=== PATIENT | female | born 1965 | race Two or more races ===

== ENCOUNTER 2020-05-21 13:52 | Outpatient (RCR) | payer MEDICAID, SELFPAY | END 2020-07-24 13:22 | disposition other institution (70) | LOC: HO.PT 13:52 | PROVIDERS: Visit Provider Student in an Organized Health Care Education/Training Program | DX: L40.50 Arthropathic psoriasis, unspecified (principal); M75.81 Other shoulder lesions, right shoulder | CPT/HCPCS: 97110; 97112 ==

== ENCOUNTER 2020-07-28 12:28 | Outpatient (REF) | payer MEDICAID, SELFPAY ==
--- NOTE | 2020-07-28 | XR_ITS ---
EXAMINATION: XR LUMBOSACRAL SPINE WITH OBLIQUES CLINICAL INFORMATION: Psoriatic arthritis COMPARISON: 12/16/2015 TECHNIQUE: AP, both oblique, and lateral views of the lumbar spine. Lateral view of the lumbosacral junction. FINDINGS: No acute fractures or fixation. Small endplate osteophytes present throughout the lumbar spine. Vertebral body heights and disc spaces relatively preserved. Mild facet arthropathy throughout the lumbar spine. Sacroiliac joints are symmetric. Paraspinal soft tissues unremarkable. XR/XR lumbar spine 4V min IMPRESSION: No specific radiographic evidence of psoriatic spondyloarthropathy . Small endplate osteophytes present throughout the lumbar spine.
[2020-07-28 13:10] LABS: Basophils Percent Auto 0.5 % (0-2); Eosinophils Absolute Auto 0.1 X10*3/uL (0.0-0.4); Eosinophils Percent Auto 1.5 % (0-4); Hematocrit 38.2 % (37-47); Hemoglobin 12.6 g/dl (12.0-16.0); Imm Gran Abs Auto 0.02 X10*3/uL (0.00-0.03); Imm Gran Pct Auto 0.3 % (0.0-0.4); Lymphocytes Absolute Auto 3.3 X10*3/uL (1.2-4.9); Lymphocytes Percent Auto 50.1 % (20-40); MANUAL DIFF FLAG NO; Mean Corpuscular Hemoglobin 33.6 pg (27.0-33.0); Mean Corpuscular Volume 101.9 fL (80-98); Monocytes Absolute Auto 0.7 X10*3/uL (0.1-1.2); Monocytes Percent Auto 10.3 % (2-11); Neutrophils Absolute Auto 2.5 X10*3/uL (2.0-8.3); Neutrophils Percent Auto 37.3 % (45-73); Platelet Count 212 X10*3/uL (160-400); Red Blood Count 3.75 X10*6/uL (4.20-5.50); Red Cell Distribution Width 12.6 % (11.0-16.0); White Blood Count 6.6 X10*3/uL (4.8-10.8)
[2020-07-28 13:38] LABS: Cholesterol 142 mg/dL; HDL Cholesterol 49 mg/dL; LDL Cholesterol Calculated 35 mg/dl; Triglycerides 294 mg/dL
[2020-07-28 13:49] LABS: Creatinine Urine 55.17 mg/dL; Microalbum/Creatinine Ratio Ur 52.5 ug/mg cr
[2020-07-28 13:52] LABS: Estimated Average Glucose 243 mg/dL; Hemoglobin A1c % 10.1 %
[2020-07-28 13:55] LABS: Alanine Aminotransferase 43 U/L (0-31); Alkaline Phosphatase 87 U/L (39-117); Anion Gap 11 (12-20); Aspartate Amino Transferase 42 U/L (5-31); Bilirubin Total 0.4 mg/dL (0.0-1.0); Blood Urea Nitrogen 7 mg/dL (9-16); C Reactive Protein 0.46 mg/dL (< or = 0.50); Calcium 9.5 mg/dL (8.4-10.2); Carbon Dioxide 36 mmol/L (22-29); Chloride 99 mmol/L (96-108); Estimated Glomerular Filt Rate > 60; Glucose Random 134 mg/dL (60-115); Potassium 4.6 mmol/l (3.3-5.1); Sodium 141 mmol/L (135-145); Total Protein 7.9 g/dL (6.5-8.0)
[2020-07-28 14:11] LABS: Erythrocyte Sedimentation Rate 23 MM/HR (0-20)
== END 2020-07-28 12:29 | disposition home or self-care (01) ==
LOC: HO.LAB 12:28
PROVIDERS: PCP Internal Medicine; Visit Provider Student in an Organized Health Care Education/Training Program
DX: L40.50 Arthropathic psoriasis, unspecified (principal); L40.9 Psoriasis, unspecified; Z79.899 Other long term (current) drug therapy; E11.65 Type 2 diabetes mellitus with hyperglycemia; E78.2 Mixed hyperlipidemia; I10 Essential (primary) hypertension; R80.8 Other proteinuria
CPT/HCPCS: 36415; 72110; 80053; 80061; 82043; 83036; 85025; 85652; 86140

== ENCOUNTER 2020-08-19 13:41 | Outpatient (REF) | payer MEDICAID, SELFPAY ==
--- NOTE | 2020-08-19 13:46 | MM_ITS ---
EXAMINATION: MM SCREENING DIGITAL BREAST TOMOSYNTHESIS, BILATERAL CLINICAL INFORMATION: Screening. Asymptomatic. The lifetime risk of breast cancer based on the Tyrer-Cuzick Model is 5.4%. COMPARISON: Mammography: May 28, 2019 and studies dating back to July 12, 2012 TECHNIQUE: Digital breast tomosynthesis is performed in both the craniocaudal and mediolateral oblique views along with computer-aided detection (CAD). Synthesized 2D images are generated from the tomosynthesis. Left exaggerated craniocaudal view also performed. FINDINGS: The breasts are almost entirely fatty (ACR BI-RADS breast composition Category a). There are no significant masses, abnormal calcifications, or other abnormalities. MM/MM tomosynthesis screening BI IMPRESSION: There are no significant changes from prior study. ASSESSMENT: BI-RADS 1: Negative RECOMMENDATION: Routine annual mammography screening. This patient's information was entered into a reminder system with a target due date for their next mammogram.
== END 2020-08-19 13:42 | disposition home or self-care (01) ==
LOC: HO.MAMMO 13:41
PROVIDERS: PCP Internal Medicine; Visit Provider Internal Medicine
DX: Z12.31 Encounter for screening mammogram for malignant neoplasm of breast (principal)
CPT/HCPCS: 77063; 77067

== ENCOUNTER 2020-09-23 08:52 | Outpatient (REF) | payer MEDICAID, SELFPAY ==
--- NOTE | ~2020-09-23 | XR_ITS ---
EXAMINATION: BILATERAL KNEES. CLINICAL INFORMATION: Bilateral knee pain COMPARISON: None TECHNIQUE: 3 views of each knee FINDINGS: RIGHT KNEE: There is loss of tricompartment joint space with periarticular spurring. No loose bodies, one erosive changes or suprapatellar joint effusion seen. The soft tissues are unremarkable. LEFT KNEE: There is loss of tricompartment joint space with periarticular spurring. There are no loose bodies, bony erosive changes or joint effusion. The soft tissues unremarkable. XR/XR knee RT 3V IMPRESSION: Moderate degenerative arthritic changes both knee joints. No visible acute fracture, dislocation or subluxation seen.
--- NOTE | ~2020-09-23 | XR_ITS ---
EXAMINATION: BILATERAL KNEES. CLINICAL INFORMATION: Bilateral knee pain COMPARISON: None TECHNIQUE: 3 views of each knee FINDINGS: RIGHT KNEE: There is loss of tricompartment joint space with periarticular spurring. No loose bodies, one erosive changes or suprapatellar joint effusion seen. The soft tissues are unremarkable. LEFT KNEE: There is loss of tricompartment joint space with periarticular spurring. There are no loose bodies, bony erosive changes or joint effusion. The soft tissues unremarkable. XR/XR knee LT 3V IMPRESSION: Moderate degenerative arthritic changes both knee joints. No visible acute fracture, dislocation or subluxation seen.
[2020-09-23 10:07] LABS: MANUAL DIFF FLAG NO
[2020-09-23 10:29] LABS: Basophils Percent Auto 0.4 % (0-2); Eosinophils Absolute Auto 0.1 X10*3/uL (0.0-0.4); Eosinophils Percent Auto 1.9 % (0-4); Hematocrit 40.1 % (37-47); Hemoglobin 12.8 g/dl (12.0-16.0); Imm Gran Abs Auto 0.01 X10*3/uL (0.00-0.03); Imm Gran Pct Auto 0.2 % (0.0-0.4); Lymphocytes Percent Auto 56.8 % (20-40); Mean Corpuscular HGB Conc 31.9 g/dl (31.0-35.0); Mean Corpuscular Hemoglobin 32.4 pg (27.0-33.0); Mean Corpuscular Volume 101.5 fL (80-98); Mean Platelet Volume 10.9 fL (9.4-12.3); Monocytes Absolute Auto 0.5 X10*3/uL (0.1-1.2); Monocytes Percent Auto 9.2 % (2-11); Neutrophils Absolute Auto 1.7 X10*3/uL (2.0-8.3); Neutrophils Percent Auto 31.5 % (45-73); Platelet Count 243 X10*3/uL (160-400); Red Blood Count 3.95 X10*6/uL (4.20-5.50); Red Cell Distribution Width 12.2 % (11.0-16.0); White Blood Count 5.3 X10*3/uL (4.8-10.8)
[2020-09-23 10:53] LABS: Alanine Aminotransferase 22 U/L (0-31); Albumin Level 3.9 g/dL (3.5-5.0); Alkaline Phosphatase 78 U/L (39-117); Anion Gap 14 (12-20); Aspartate Amino Transferase 21 U/L (5-31); Bilirubin Total 0.4 mg/dL (0.0-1.0); Blood Urea Nitrogen 9 mg/dL (9-16); Calcium 9.2 mg/dL (8.4-10.2); Carbon Dioxide 34 mmol/L (22-29); Chloride 97 mmol/L (96-108); Estimated Glomerular Filt Rate > 60; Glucose Random 248 mg/dL (60-115); Potassium 4.4 mmol/L (3.3-5.1); Sodium 141 mmol/L (135-145); Total Protein 7.8 g/dL (6.5-8.0)
[2020-09-23 12:05] LABS: Erythrocyte Sedimentation Rate 21 MM/HR (0-20)
== END 2020-09-23 08:53 | disposition home or self-care (01) ==
LOC: HO.LAB 08:52
PROVIDERS: PCP Internal Medicine; Visit Provider Student in an Organized Health Care Education/Training Program
DX: L40.50 Arthropathic psoriasis, unspecified (principal); L40.9 Psoriasis, unspecified; M25.562 Pain in left knee; M25.561 Pain in right knee; Z79.899 Other long term (current) drug therapy
CPT/HCPCS: 36415; 73562; 80053; 85025; 85652; 86140; 99212

== ENCOUNTER 2020-11-18 13:00 | Outpatient (RCR) | payer MEDICAID, SELFPAY ==
[2020-10-29 13:05] VITALS: BP 135/80; PULSE 96
--- NOTE | 2020-10-29 13:59 | MHC.PT.EP ---
[facility] [place] Office [place] Office [place] Office [address] [phone] F: [phone] F: [phone] F: [phone] F: [phone] Physical Therapy Plan of Care Date of Evaluation: 10/29/20 Date of Surgery: NA Diagnosis: BACK AND TIFFANI KNEE PAIN Assessment: GRANT RETURNS TO PT FOR TREATMENT OF ONGOING LOW BACK AND KNEE PAIN. UPON EXAM IMPAIRMENTS INCLUDE DECREASED LUMBAR AND LE ROM, DECREASED STRENGTH OF CORE, HIPS AND LE, ALTERED POSTURE AND POSITIONING, ALTERED GAIT PATTERN, DECREASED BALANCE AND INCREASED PAIN. FUNCTIONAL LIMITATIONS INCLUDE DECREASED TOLERANCE TO LIFTING, REACHING, PUSHING, PULLING, SQUATTING AND BENDING, DECREASED ABILITY TO PERFORM HOMEMAKING AND SELF CARE TASKS, DECREASED ABILTIY TO PERFORM STATIC STANDING, WALKING GREATER THN 5 MINS AND CLIMBING/DECENDING STAIRS. Frequency and Duration: The patient will be seen 2 X WEEK FOR 4 WEEKS Short Term Goals: PROGRESS PREVIOUS HEP AND PROGRESS TOLERATED IN 2 WEEKS Long-Term Goals: IN 4 WEEKS INDEPENDENT HEP TO TOLERATE AT MINIMUM 15 MINS OF WALKING WITHOUT REST BREAK AND PAIN NO GREATER THAN 2/10 TO CLIMB/DESCEND 1 FLIGHT OF STAIRS, 3 REPETITIONS WITH RECIPROCAL GAIT PATTERNING Treatment Plan: Modalities to reduce pain, spasms and effusion. Manual therapy to restore motion and function. Therapeutic exercise to improve strength and flexibility. Neuromuscular re-education for posture and balance. Therapeutic activities to return to functional activities of daily living. Electronically signed by: JONATHAN BELL PT, DPT Please sign and return to therapist. Thank you for your referral.
--- NOTE | 2021-01-14 12:53 | MHC.PT.DC ---
[facility] [place] Office [place] Office [place] Office [address] Watts [address] [phone] F: [phone] F: [phone] F: [phone] F: [phone] Physical Therapy Discharge Report Diagnosis: BACK AND TIFFANI KNEE PAIN Date of Surgery: NA Date of Evaluation: 10/29/20 Date of Discharge: 11/25/20 Treatments to Date: 3 Cancellations to Date: 6 No Shows to Date: 0 Discharge Status: Patient Elected to Stop Visit Non-compliance Discharge Summary: MULTIPLE CANCELS AND DID NOT SCHEDULE FURTHER VISITS, STATUS UNKNOWN Electronically signed by: JONATHAN BELL PT, DPT Please sign and return to therapist. Thank you for your referral.
== END 2021-01-14 12:54 | disposition other institution (70) ==
LOC: HO.PT 13:00
PROVIDERS: PCP Internal Medicine; Visit Provider Student in an Organized Health Care Education/Training Program
DX: L40.50 Arthropathic psoriasis, unspecified (principal)
CPT/HCPCS: 97110; 97162; 97535

== ENCOUNTER 2021-01-26 12:57 | Outpatient (REF) | payer MEDICAID, SELFPAY ==
[2021-01-26 14:25] LABS: Estimated Average Glucose 263 mg/dL; Hemoglobin A1c % 10.8 %
[2021-01-26 14:34] LABS: Alanine Aminotransferase 22 U/L (0-31); Albumin Level 4.1 g/dL (3.5-5.0); Alkaline Phosphatase 85 U/L (39-117); Anion Gap 11 (12-20); Aspartate Amino Transferase 30 U/L (5-31); Bilirubin Total 0.6 mg/dL (0.0-1.0); Blood Urea Nitrogen 9 mg/dL (9-16); Calcium 10.1 mg/dL (8.4-10.2); Carbon Dioxide 33 mmol/L (22-29); Chloride 102 mmol/L (96-108); Cholesterol 158 mg/dL; Estimated Glomerular Filt Rate > 60; Glucose Random 100 mg/dL (60-115); HDL Cholesterol 45 mg/dL; LDL Cholesterol Calculated 52 mg/dl; Potassium 4.3 mmol/L (3.3-5.1); Sodium 142 mmol/L (135-145); Total Protein 8.3 g/dL (6.5-8.0); Triglycerides 308 mg/dL
[2021-01-26 15:05] LABS: Creatinine Urine 120.54 mg/dL; Microalbum/Creatinine Ratio Ur 39.8 ug/mg cr
== END 2021-01-26 12:58 | disposition home or self-care (01) ==
LOC: HO.LAB 12:57
PROVIDERS: PCP Internal Medicine; Visit Provider Internal Medicine
DX: E11.65 Type 2 diabetes mellitus with hyperglycemia (principal); E78.2 Mixed hyperlipidemia; I10 Essential (primary) hypertension; R80.8 Other proteinuria
CPT/HCPCS: 36415; 80053; 80061; 82043; 83036

== ENCOUNTER → 2021-02-16 13:56 | Outpatient (BNVA) | payer MEDICAID, SELFPAY | PROVIDERS: PCP Internal Medicine; Visit Provider Student in an Organized Health Care Education/Training Program | DX: L40.50 Arthropathic psoriasis, unspecified (principal); Z79.899 Other long term (current) drug therapy | CPT/HCPCS: 99212 ==

== ENCOUNTER → 2021-04-20 10:07 | Outpatient (BNVA) | payer MEDICAID, SELFPAY | PROVIDERS: PCP Internal Medicine; Visit Provider Student in an Organized Health Care Education/Training Program ==

== ENCOUNTER 2021-06-14 12:22 | Outpatient (REF) | payer MEDICAID, SELFPAY ==
[2021-06-14 12:39] LABS: MANUAL DIFF FLAG NO
[2021-06-14 13:09] LABS: Basophils Percent Auto 0.2 % (0-2); Eosinophils Absolute Auto 0.2 X10*3/uL (0.0-0.4); Hematocrit 40.5 % (37.0-47.0); Hemoglobin 13.1 g/dl (12.0-16.0); Imm Gran Abs Auto 0.01 X10*3/uL (0.00-0.03); Imm Gran Pct Auto 0.2 % (0.0-0.4); Lymphocytes Absolute Auto 2.6 X10*3/uL (1.2-4.9); Lymphocytes Percent Auto 48.6 % (20-40); Mean Corpuscular HGB Conc 32.3 g/dl (31.0-35.0); Mean Corpuscular Hemoglobin 32.3 pg (27.0-33.0); Mean Platelet Volume 10.8 fL (9.4-12.3); Monocytes Absolute Auto 0.5 X10*3/uL (0.1-1.2); Monocytes Percent Auto 8.3 % (2-11); Neutrophils Absolute Auto 2.15 x10*3/uL (2.0-8.3); Neutrophils Percent Auto 39.7 % (45-73); Platelet Count 264 X10*3/uL (160-400); Red Blood Count 4.05 X10*6/uL (4.20-5.50); Red Cell Distribution Width 13.1 % (11.0-16.0); White Blood Count 5.4 X10*3/uL (4.8-10.8)
[2021-06-14 13:33] LABS: Alanine Aminotransferase 17 U/L (0-31); Albumin Level 3.8 g/dL (3.5-5.0); Alkaline Phosphatase 88 U/L (39-117); Anion Gap 14 (12-20); Aspartate Amino Transferase 19 U/L (5-31); Bilirubin Total 0.5 mg/dL (0.0-1.0); Blood Urea Nitrogen 8 mg/dL (9-16); C Reactive Protein 0.24 mg/dL (< or = 0.50); Calcium 9.4 mg/dL (8.4-10.2); Carbon Dioxide 29 mmol/L (22-29); Chloride 103 mmol/L (96-108); Estimated Glomerular Filt Rate > 60; Glucose Random 233 mg/dL (60-115); Potassium 4.6 mmol/L (3.3-5.1); Sodium 141 mmol/L (135-145); Total Protein 7.9 g/dL (6.5-8.0)
[2021-06-14 13:35] LABS: Estimated Average Glucose 263 mg/dL; Hemoglobin A1c % 10.8 %
[2021-06-14 13:39] LABS: Cholesterol 196 mg/dL; HDL Cholesterol 48 mg/dL; LDL Cholesterol Calculated 78 mg/dl; Triglycerides 353 mg/dL
[2021-06-14 13:47] LABS: Erythrocyte Sedimentation Rate 20 MM/HR (0-20)
== END 2021-06-14 12:23 | disposition home or self-care (01) ==
LOC: HO.LAB 12:22
PROVIDERS: Student in an Organized Health Care Education/Training Program; PCP Internal Medicine; Visit Provider Internal Medicine
DX: E11.65 Type 2 diabetes mellitus with hyperglycemia (principal); E78.2 Mixed hyperlipidemia; I10 Essential (primary) hypertension; L40.50 Arthropathic psoriasis, unspecified
CPT/HCPCS: 36415; 80053; 80061; 83036; 85025; 85652; 86140

== ENCOUNTER 2021-09-13 12:14 | Outpatient (REF) | payer MEDICAID, SELFPAY ==
[2021-09-13 12:58] LABS: MANUAL DIFF FLAG NO
[2021-09-13 13:25] LABS: Basophils Percent Auto 0.6 % (0-2); Eosinophils Absolute Auto 0.1 X10*3/uL (0.0-0.4); Hematocrit 38.5 % (37.0-47.0); Hemoglobin 12.5 g/dl (12.0-16.0); Imm Gran Abs Auto 0.01 X10*3/uL (0.00-0.03); Imm Gran Pct Auto 0.2 % (0.0-0.4); Lymphocytes Absolute Auto 2.5 X10*3/uL (1.2-4.9); Lymphocytes Percent Auto 48.7 % (20-40); Mean Corpuscular HGB Conc 32.5 g/dl (31.0-35.0); Mean Corpuscular Hemoglobin 32.1 pg (27.0-33.0); Mean Platelet Volume 11.2 fL (9.4-12.3); Monocytes Absolute Auto 0.5 X10*3/uL (0.1-1.2); Monocytes Percent Auto 9.7 % (2-11); Neutrophils Percent Auto 38.8 % (45-73); Platelet Count 252 X10*3/uL (160-400); Red Blood Count 3.89 X10*6/uL (4.20-5.50); White Blood Count 5.1 X10*3/uL (4.8-10.8)
[2021-09-13 14:08] LABS: Erythrocyte Sedimentation Rate 33 MM/HR (0-20)
[2021-09-13 14:10] LABS: Alanine Aminotransferase 11 U/L (0-31); Albumin Level 3.7 g/dL (3.5-5.0); Alkaline Phosphatase 80 U/L (39-117); Anion Gap 12 (12-20); Aspartate Amino Transferase 12 U/L (5-31); Bilirubin Total 0.4 mg/dL (0.0-1.0); Blood Urea Nitrogen 10 mg/dL (9-16); Calcium 9.9 mg/dL (8.4-10.2); Carbon Dioxide 30 mmol/L (22-29); Chloride 102 mmol/L (96-108); Estimated Glomerular Filt Rate > 60; Glucose Random 151 mg/dL (60-115); Potassium 4.2 mmol/L (3.3-5.1); Sodium 140 mmol/L (135-145); Total Protein 7.9 g/dL (6.5-8.0)
== END 2021-09-13 12:15 | disposition home or self-care (01) ==
LOC: HO.LAB 12:14
PROVIDERS: PCP Internal Medicine; Visit Provider Student in an Organized Health Care Education/Training Program
DX: L40.50 Arthropathic psoriasis, unspecified (principal); M25.511 Pain in right shoulder; M79.641 Pain in right hand; M79.642 Pain in left hand; M54.50 Low back pain, unspecified; Z79.899 Other long term (current) drug therapy
CPT/HCPCS: 36415; 80053; 85025; 85652; 86140; 99212

== ENCOUNTER 2021-09-27 13:37 | Outpatient (REF) | payer MEDICAID, SELFPAY ==
--- NOTE | ~2021-09-27 | MM_ITS ---
EXAMINATION: MM SCREENING DIGITAL BREAST TOMOSYNTHESIS, BILATERAL CLINICAL INFORMATION: Screening. Asymptomatic. The lifetime risk of breast cancer based on the Tyrer-Cuzick Model is 5%. COMPARISON: Mammography: 08/19/2020, 05/28/2019, 04/27/2018 TECHNIQUE: Digital breast tomosynthesis is performed in both the craniocaudal and mediolateral oblique views along with computer-aided detection (CAD). Synthesized 2D images are generated from the tomosynthesis. Additional views are obtained: Bilateral CC, left MLO, right MLO x2. FINDINGS: The breasts are almost entirely fatty (ACR BI-RADS breast composition Category a). Background stromal and fibroglandular densities are stable. There are no significant masses, abnormal calcifications, or other abnormalities. Parenchymal pattern is similar to prior studies. There is no developing density or architectural abnormality. The axilla and skin contours are unremarkable. No significant changes. MM/MM tomosynthesis screening BI IMPRESSION: No mammographic evidence of malignancy. ASSESSMENT: BI-RADS 1: Negative RECOMMENDATION: Routine annual mammography screening. This patient's information was entered into a reminder system with a target due date for their next mammogram.
== END 2021-09-27 13:38 | disposition home or self-care (01) ==
LOC: HO.MAMMO 13:37
PROVIDERS: PCP Internal Medicine; Visit Provider Internal Medicine
DX: Z12.31 Encounter for screening mammogram for malignant neoplasm of breast (principal)
CPT/HCPCS: 77063; 77067

== ENCOUNTER 2021-10-05 12:07 | Outpatient (REF) | payer MEDICAID, SELFPAY ==
[2021-10-05 13:16] LABS: Estimated Average Glucose 258 mg/dL; Hemoglobin A1c % 10.6 %
[2021-10-05 13:35] LABS: Alanine Aminotransferase 13 U/L (0-31); Albumin Level 3.8 g/dL (3.5-5.0); Alkaline Phosphatase 91 U/L (39-117); Anion Gap 15 (12-20); Aspartate Amino Transferase 16 U/L (5-31); Bilirubin Total 0.7 mg/dL (0.0-1.0); Blood Urea Nitrogen 10 mg/dL (9-16); Calcium 9.3 mg/dL (8.4-10.2); Carbon Dioxide 28 mmol/L (22-29); Chloride 100 mmol/L (96-108); Estimated Glomerular Filt Rate > 60; Glucose Random 249 mg/dL (60-115); Potassium 4.6 mmol/L (3.3-5.1); Sodium 138 mmol/L (135-145)
[2021-10-05 14:53] LABS: Creatinine Urine 96.18 mg/dL; Microalbum/Creatinine Ratio Ur 174.6 ug/mg cr
== END 2021-10-05 12:08 | disposition home or self-care (01) ==
LOC: HO.LAB 12:07
PROVIDERS: PCP Internal Medicine; Visit Provider Internal Medicine
DX: E11.65 Type 2 diabetes mellitus with hyperglycemia (principal); E78.2 Mixed hyperlipidemia; M79.602 Pain in left arm
CPT/HCPCS: 36415; 80053; 82043; 83036

== ENCOUNTER 2021-10-21 12:00 | Outpatient (RCR) | payer MEDICAID, SELFPAY ==
--- NOTE | 2021-10-12 14:04 | MHC.PT.EP ---
[facility] [place] Office [place] Office [place] Office [address] [phone] F: [phone] F: [phone] F: [phone] F: [phone] Physical Therapy Plan of Care Date of Evaluation: Date of Surgery: N/A Diagnosis: Pain in right shoulder Pain in left shoulder Assessment: Pt is a 56yo F who presents to PT with chronic B shoulder pain, R > L. She presents today with current impairments in pain, decreased shoulder ROM, decreased strength, soft tissue restrictions, and impaired posture. She is TTP with STR noted throughout B UT and levator. She is limited functionally by reaching, lifting, overhead ADLs, and sleeping. Pt is a good candidate for skilled PT in order to address current impairments in order to facilitate return to PLOF. She will be seen for PT 2x/week for 4 weeks and will be reassessed at that time. Frequency and Duration: The patient will be seen 2x/week for 4 weeks Short Term Goals: Pt will be I with HEP to promote self management of symptoms Pt will improve R shoulder flexion by at least 5 degrees Intermediate Goals: Pt will achieve full ROM throughout B shoulders to assist with overhead ADLs Pt will improve R shoulder flexion strength to at least 4/5 to assist with lifting objects Pt will demonstrate improvements in functional as evidenced by statistically significant improvement in SPADI outcome measure Treatment Plan: Modalities to reduce pain, spasms and effusion. Manual therapy to restore motion and function. Therapeutic exercise to improve strength and flexibility. Neuromuscular re-education for posture and balance. Therapeutic activities to return to functional activities of daily living. Electronically signed by: Becky Lofton, PT, DPT Please sign and return to therapist. Thank you for your referral.
--- NOTE | 2021-11-05 12:37 | MHC.PT.DC ---
[facility] [place] Office [place] Office [place] Office [address] 140 [facility] [phone] F: [phone] F: [phone] F: [phone] F: [phone] Physical Therapy Discharge Report Diagnosis: Pain in right shoulder Pain in left shoulder Date of Surgery: N/A Date of Evaluation: 10/12/21 Date of Discharge: 11/05/21 Treatments to Date: 2 Cancellations to Date: 1 No Shows to Date: 3 Discharge Status: Visit Non-compliance Discharge Summary: Pt was seen for PT from 10/12/21-10/21/21. She attended initial evaluation and 1 treatment session. She has had 1 cancellation and 3 no show appointments since last attended PT session. Pt is being D/C from skilled PT per [facility] attendance policy and visit non-compliance. Pt current level of function unknown at this time. Electronically signed by: Becky Lofton, PT, DPT Please sign and return to therapist. Thank you for your referral.
== END 2021-11-05 12:38 | disposition home or self-care (01) ==
LOC: HO.PT 12:00
PROVIDERS: PCP Internal Medicine; Visit Provider Nurse Practitioner Family
DX: M25.511 Pain in right shoulder (principal); M25.512 Pain in left shoulder
CPT/HCPCS: 97110; 97162

== ENCOUNTER 2022-01-18 11:34 | Outpatient (REF) | payer MEDICAID, SELFPAY ==
[2022-01-18 11:50] LABS: MANUAL DIFF FLAG NO
[2022-01-18 12:55] LABS: Basophils Percent Auto 0.3 % (0-2); Eosinophils Absolute Auto 0.1 X10*3/uL (0.0-0.4); Eosinophils Percent Auto 1.7 % (0-4); Hematocrit 42.9 % (37.0-47.0); Hemoglobin 13.8 g/dl (12.0-16.0); Imm Gran Abs Auto 0.04 X10*3/uL (0.00-0.03); Imm Gran Pct Auto 0.6 % (0.0-0.4); Lymphocytes Absolute Auto 2.6 X10*3/uL (1.2-4.9); Lymphocytes Percent Auto 37.3 % (20-40); Mean Corpuscular HGB Conc 32.2 g/dl (31.0-35.0); Mean Corpuscular Hemoglobin 31.9 pg (27.0-33.0); Mean Corpuscular Volume 99.3 fL (80.0-98.0); Mean Platelet Volume 11.5 fL (9.4-12.3); Monocytes Absolute Auto 0.6 X10*3/uL (0.1-1.2); Neutrophils Absolute Auto 3.6 x10*3/uL (2.0-8.3); Neutrophils Percent Auto 51.1 % (45-73); Platelet Count 293 X10*3/uL (160-400); Red Blood Count 4.32 X10*6/uL (4.20-5.50); Red Cell Distribution Width 12.2 % (11.0-16.0)
[2022-01-18 13:10] LABS: Estimated Average Glucose 269 mg/dL
[2022-01-18 13:22] LABS: Alanine Aminotransferase 13 U/L (0-31); Albumin Level 3.9 g/dL (3.5-5.0); Alkaline Phosphatase 105 U/L (39-117); Anion Gap 15 (12-20); Aspartate Amino Transferase 17 U/L (5-31); Bilirubin Total 0.4 mg/dL (0.0-1.0); Blood Urea Nitrogen 9 mg/dL (9-16); C Reactive Protein 1.85 mg/dL (< or = 0.50); Calcium 9.7 mg/dL (8.4-10.2); Carbon Dioxide 29 mmol/L (22-29); Chloride 101 mmol/L (96-108); Estimated Glomerular Filt Rate > 60; Glucose Random 147 mg/dL (60-115); Potassium 5.2 mmol/L (3.3-5.1); Sodium 140 mmol/L (135-145); Total Protein 8.3 g/dL (6.5-8.0)
[2022-01-18 13:34] LABS: Erythrocyte Sedimentation Rate 51 MM/HR (0-20)
== END 2022-01-18 11:35 | disposition home or self-care (01) ==
LOC: HO.LAB 11:34
PROVIDERS: Absent Provider Internal Medicine; PCP Internal Medicine; Visit Provider Nurse Practitioner Family
DX: Z00.00 Encounter for general adult medical examination without abnormal findings (principal); L40.50 Arthropathic psoriasis, unspecified; E11.65 Type 2 diabetes mellitus with hyperglycemia; I10 Essential (primary) hypertension; R80.8 Other proteinuria
CPT/HCPCS: 36415; 80053; 83036; 85025; 85652; 86140

== ENCOUNTER → 2022-02-25 13:46 | Outpatient (BNVA) | payer MEDICAID, SELFPAY | PROVIDERS: PCP Internal Medicine; Visit Provider Nurse Practitioner Family | DX: L40.50 Arthropathic psoriasis, unspecified (principal); L40.9 Psoriasis, unspecified; M54.50 Low back pain, unspecified; M25.561 Pain in right knee; M25.562 Pain in left knee; M25.511 Pain in right shoulder; Z79.899 Other long term (current) drug therapy | CPT/HCPCS: 99212 ==

== ENCOUNTER 2022-05-30 12:20 | Outpatient (REF) | payer MEDICAID, SELFPAY ==
[2022-05-30 12:43] LABS: MANUAL DIFF FLAG NO
[2022-05-30 12:58] LABS: Basophils Percent Auto 0.2 % (0-2); Eosinophils Absolute Auto 0.1 X10*3/uL (0.0-0.4); Eosinophils Percent Auto 1.9 % (0-4); Hematocrit 35.9 % (37.0-47.0); Hemoglobin 11.7 g/dl (12.0-16.0); Imm Gran Abs Auto 0.02 X10*3/uL (0.00-0.03); Imm Gran Pct Auto 0.3 % (0.0-0.4); Mean Corpuscular HGB Conc 32.6 g/dl (31.0-35.0); Mean Corpuscular Hemoglobin 30.9 pg (27.0-33.0); Mean Corpuscular Volume 94.7 fL (80.0-98.0); Mean Platelet Volume 10.7 fL (9.4-12.3); Monocytes Absolute Auto 0.7 X10*3/uL (0.1-1.2); Monocytes Percent Auto 11.9 % (2-11); Neutrophils Percent Auto 51.7 % (45-73); Platelet Count 245 X10*3/uL (160-400); Red Blood Count 3.79 X10*6/uL (4.20-5.50); White Blood Count 5.8 X10*3/uL (4.8-10.8)
[2022-05-30 13:24] LABS: Estimated Average Glucose 283 mg/dL; Hemoglobin A1c % 11.5 %
[2022-05-30 13:28] LABS: Alanine Aminotransferase 9 U/L (0-31); Aspartate Amino Transferase 11 U/L (5-31); C Reactive Protein 3.13 mg/dL (< or = 0.50); Estimated Glomerular Filt Rate > 60
[2022-05-30 13:45] LABS: Alanine Aminotransferase 9 U/L (0-31); Albumin Level 3.6 g/dL (3.5-5.0); Alkaline Phosphatase 100 U/L (39-117); Anion Gap 15 (12-20); Aspartate Amino Transferase 11 U/L (5-31); Bilirubin Total 0.3 mg/dL (0.0-1.0); Blood Urea Nitrogen 12 mg/dL (9-16); Calcium 9.2 mg/dL (8.4-10.2); Carbon Dioxide 27 mmol/L (22-29); Chloride 98 mmol/L (96-108); Estimated Glomerular Filt Rate > 60; Potassium 4.3 mmol/L (3.3-5.1); Sodium 136 mmol/L (135-145); Total Protein 7.9 g/dL (6.5-8.0)
[2022-05-30 13:53] LABS: Erythrocyte Sedimentation Rate 65 MM/HR (0-20)
[2022-05-30 13:56] LABS: Glucose Random 426 mg/dL (60-115)
== END 2022-05-30 12:21 | disposition home or self-care (01) ==
LOC: HO.LAB 12:20
PROVIDERS: Absent Provider Internal Medicine; PCP Internal Medicine; Visit Provider Nurse Practitioner Family
DX: E11.65 Type 2 diabetes mellitus with hyperglycemia (principal); I10 Essential (primary) hypertension; L30.4 Erythema intertrigo; L40.59 Other psoriatic arthropathy; R80.8 Other proteinuria; Z79.899 Other long term (current) drug therapy
CPT/HCPCS: 36415; 80053; 82565; 83036; 84450; 84460; 85025; 85652; 86140

== ENCOUNTER → 2022-06-02 12:00 | Outpatient (BNVA) | payer MEDICAID, SELFPAY | PROVIDERS: PCP Internal Medicine; Visit Provider Nurse Practitioner Family | DX: L40.50 Arthropathic psoriasis, unspecified (principal); M25.561 Pain in right knee; M54.50 Low back pain, unspecified; Z79.899 Other long term (current) drug therapy | CPT/HCPCS: 99212 ==

== ENCOUNTER 2022-08-30 12:19 | Outpatient (REF) | payer MEDICAID, SELFPAY ==
[2022-08-30 12:33] LABS: MANUAL DIFF FLAG NO
[2022-08-30 13:11] LABS: Basophils Percent Auto 0.5 % (0-2); Eosinophils Absolute Auto 0.1 X10*3/uL (0.0-0.4); Eosinophils Percent Auto 1.6 % (0-4); Hematocrit 41.8 % (37.0-47.0); Hemoglobin 13.5 g/dl (12.0-16.0); Imm Gran Abs Auto 0.01 X10*3/uL (0.00-0.03); Imm Gran Pct Auto 0.2 % (0.0-0.4); Lymphocytes Absolute Auto 2.1 X10*3/uL (1.2-4.9); Lymphocytes Percent Auto 35.9 % (20-40); Mean Corpuscular HGB Conc 32.3 g/dl (31.0-35.0); Mean Corpuscular Hemoglobin 30.1 pg (27.0-33.0); Mean Corpuscular Volume 93.3 fL (80.0-98.0); Mean Platelet Volume 11.2 fL (9.4-12.3); Monocytes Absolute Auto 0.4 X10*3/uL (0.1-1.2); Monocytes Percent Auto 7.6 % (2-11); Neutrophils Absolute Auto 3.2 x10*3/uL (2.0-8.3); Neutrophils Percent Auto 54.2 % (45-73); Platelet Count 281 X10*3/uL (160-400); Red Blood Count 4.48 X10*6/uL (4.20-5.50); Red Cell Distribution Width 13.2 % (11.0-16.0); White Blood Count 5.8 X10*3/uL (4.8-10.8)
[2022-08-30 13:59] LABS: Estimated Average Glucose 275 mg/dL; Hemoglobin A1c % 11.2 %
[2022-08-30 14:06] LABS: Erythrocyte Sedimentation Rate 49 MM/HR (0-20)
[2022-08-30 14:27] LABS: Alanine Aminotransferase 11 U/L (0-31); Aspartate Amino Transferase 14 U/L (5-31)
[2022-08-30 14:32] LABS: Alanine Aminotransferase 11 U/L (0-31); Albumin Level 3.7 g/dL (3.5-5.0); Alkaline Phosphatase 95 U/L (39-117); Anion Gap 14 (12-20); Aspartate Amino Transferase 14 U/L (5-31); Bilirubin Total 0.4 mg/dL (0.0-1.0); Blood Urea Nitrogen 10 mg/dL (9-16); C Reactive Protein 1.07 mg/dL (< or = 0.50); Carbon Dioxide 28 mmol/L (22-29); Chloride 101 mmol/L (96-108); Estimated Glomerular Filt Rate > 60; Glucose Random 193 mg/dL (60-115); Potassium 4.1 mmol/L (3.3-5.1); Sodium 139 mmol/L (135-145); Total Protein 8.3 g/dL (6.5-8.0)
== END 2022-08-30 12:20 | disposition home or self-care (01) ==
LOC: HO.LAB 12:19
PROVIDERS: Absent Provider Nurse Practitioner Family; PCP Internal Medicine; Visit Provider Internal Medicine
DX: E11.65 Type 2 diabetes mellitus with hyperglycemia (principal); G47.33 Obstructive sleep apnea (adult) (pediatric); I10 Essential (primary) hypertension; R80.8 Other proteinuria; L40.50 Arthropathic psoriasis, unspecified; Z79.899 Other long term (current) drug therapy
CPT/HCPCS: 36415; 80053; 83036; 84376; 84450; 84460; 85025; 85652; 86140

== ENCOUNTER → 2022-09-29 13:44 | Outpatient (BNVA) | payer MEDICAID, SELFPAY | PROVIDERS: PCP Internal Medicine; Visit Provider Nurse Practitioner Family | DX: L40.50 Arthropathic psoriasis, unspecified (principal); L40.9 Psoriasis, unspecified; M54.50 Low back pain, unspecified; Z79.899 Other long term (current) drug therapy | CPT/HCPCS: 99212 ==

== ENCOUNTER 2022-11-17 14:04 | Outpatient (REF) | payer MEDICAID, SELFPAY ==
--- NOTE | ~2022-11-17 | MM_ITS ---
EXAMINATION: MM SCREENING DIGITAL BREAST TOMOSYNTHESIS, BILATERAL CLINICAL INFORMATION: Screening. Asymptomatic. The lifetime risk of breast cancer based on the Tyrer-Cuzick Model is 4.7%. COMPARISON: Mammography: September 27, 2021 and studies dating back to December 24, 2015 TECHNIQUE: Digital breast tomosynthesis is performed in both the craniocaudal and mediolateral oblique views along with computer-aided detection (CAD). Synthesized 2D images are generated from the tomosynthesis. FINDINGS: There are scattered areas of fibroglandular density (ACR BI-RADS breast composition Category b). There are no significant masses, abnormal calcifications, or other abnormalities. MM/MM tomosynthesis screening BI IMPRESSION: No significant changes from prior exam. ASSESSMENT: BI-RADS 1: Negative RECOMMENDATION: Routine annual mammography screening. This patient's information was entered into a reminder system with a target due date for their next mammogram.
== END 2022-11-17 14:05 | disposition home or self-care (01) ==
LOC: HO.MAMMO 14:04
PROVIDERS: PCP Internal Medicine; Visit Provider Internal Medicine
DX: Z12.31 Encounter for screening mammogram for malignant neoplasm of breast (principal)
CPT/HCPCS: 77063; 77067

== ENCOUNTER 2022-12-05 13:01 | Outpatient (REF) | payer MEDICAID, SELFPAY ==
[2022-12-05 13:29] LABS: MANUAL DIFF FLAG NO
[2022-12-05 14:29] LABS: Alanine Aminotransferase 11 U/L (0-31); Aspartate Amino Transferase 11 U/L (5-31); C Reactive Protein 0.71 mg/dL (< or = 0.50); Estimated Glomerular Filt Rate > 60
[2022-12-05 14:31] LABS: Estimated Average Glucose 258 mg/dL; Hemoglobin A1c % 10.6 %
[2022-12-05 14:34] LABS: Basophils Percent Auto 0.5 % (0-2); Eosinophils Absolute Auto 0.1 X10*3/uL (0.0-0.4); Eosinophils Percent Auto 2.1 % (0-4); Hematocrit 41.1 % (37.0-47.0); Imm Gran Abs Auto 0.02 X10*3/uL (0.00-0.03); Imm Gran Pct Auto 0.3 % (0.0-0.4); Lymphocytes Percent Auto 32.7 % (20-40); Mean Corpuscular HGB Conc 31.6 g/dl (31.0-35.0); Mean Corpuscular Hemoglobin 30.3 pg (27.0-33.0); Mean Corpuscular Volume 95.8 fL (80.0-98.0); Monocytes Absolute Auto 0.5 X10*3/uL (0.1-1.2); Monocytes Percent Auto 7.5 % (2-11); Neutrophils Absolute Auto 3.5 x10*3/uL (2.0-8.3); Neutrophils Percent Auto 56.9 % (45-73); Platelet Count 236 X10*3/uL (160-400); Red Blood Count 4.29 X10*6/uL (4.20-5.50); Red Cell Distribution Width 15.2 % (11.0-16.0); White Blood Count 6.2 X10*3/uL (4.8-10.8)
[2022-12-05 14:37] LABS: Alanine Aminotransferase 11 U/L (0-31); Albumin Level 3.7 g/dL (3.5-5.0); Alkaline Phosphatase 91 U/L (39-117); Anion Gap 11 (12-20); Aspartate Amino Transferase 12 U/L (5-31); Bilirubin Total 0.4 mg/dL (0.0-1.0); Blood Urea Nitrogen 11 mg/dL (9-16); Calcium 9.8 mg/dL (8.4-10.2); Carbon Dioxide 33 mmol/L (22-29); Chloride 103 mmol/L (96-108); Cholesterol 198 mg/dL; Estimated Glomerular Filt Rate > 60; Glucose Random 161 mg/dL (60-115); HDL Cholesterol 51 mg/dL; LDL Cholesterol Calculated 112 mg/dl; Potassium 4.3 mmol/L (3.3-5.1); Sodium 143 mmol/L (135-145); Total Protein 7.7 g/dL (6.5-8.0); Triglycerides 176 mg/dL
[2022-12-05 14:54] LABS: Thyroid Stimulating Hormone 1.92 uIU/mL (0.32-4.0)
[2022-12-05 15:16] LABS: Erythrocyte Sedimentation Rate 34 MM/HR (0-20)
[2022-12-05 15:58] LABS: Creatinine Urine 36.71 mg/dL
== END 2022-12-05 13:02 | disposition home or self-care (01) ==
LOC: HO.LAB 13:01
PROVIDERS: Absent Provider Nurse Practitioner Family; PCP Internal Medicine; Visit Provider Internal Medicine
DX: L40.50 Arthropathic psoriasis, unspecified (principal); E11.65 Type 2 diabetes mellitus with hyperglycemia; E78.00 Pure hypercholesterolemia, unspecified; I10 Essential (primary) hypertension; R80.8 Other proteinuria; Z79.899 Other long term (current) drug therapy
CPT/HCPCS: 36415; 80053; 80061; 82043; 82565; 83036; 84443; 84450; 84460; 85025; 85652; 86140

== ENCOUNTER 2023-03-21 12:35 | Outpatient (REF) | payer MEDICAID, SELFPAY ==
[2023-03-21 14:31] LABS: Estimated Average Glucose 243 mg/dL; Hemoglobin A1c % 10.1 %
[2023-03-21 15:56] LABS: Alanine Aminotransferase 12 U/L (0-31); Albumin Level 3.8 g/dL (3.5-5.0); Alkaline Phosphatase 105 U/L (39-117); Anion Gap 14 (12-20); Aspartate Amino Transferase 16 U/L (5-31); Bilirubin Total 0.5 mg/dL (0.0-1.0); Blood Urea Nitrogen 10 mg/dL (9-16); Carbon Dioxide 29 mmol/L (22-29); Chloride 99 mmol/L (96-108); Estimated Glomerular Filt Rate > 60; Glucose Random 292 mg/dL (60-115); Potassium 4.1 mmol/L (3.3-5.1); Sodium 138 mmol/L (135-145); Total Protein 8.6 g/dL (6.5-8.0)
== END 2023-03-21 12:36 | disposition home or self-care (01) ==
LOC: HO.LAB 12:35
PROVIDERS: PCP Internal Medicine; Visit Provider Internal Medicine
DX: Z00.01 Encounter for general adult medical examination with abnormal findings (principal); R80.8 Other proteinuria; L40.8 Other psoriasis; E78.00 Pure hypercholesterolemia, unspecified; E11.65 Type 2 diabetes mellitus with hyperglycemia
CPT/HCPCS: 36415; 80053; 83036

== ENCOUNTER 2023-04-05 13:14 | Outpatient (AMB) | payer MEDICAID, SELFPAY ==
[2023-04-05 13:18] VITALS: BP 120/82; PULSE 84; TEMP 36.4; O2SAT 97; BMI 38.9
--- NOTE | 2023-04-05 13:18 | A.OFFVIS_ITS ---
Intake Vital Signs 04/05/23 13:18 Height 5 ft 2 in Weight 212 lb 15.465 oz BMI 38.9 BP 120/82 Blood Pressure Location Rt brachial Position Sitting Pulse 84 Pulse Source Pulse Oximeter Temp 97.5 F Temp Source Skin Pulse Oximetry (%) 97 Intake Visit Reasons: PSA Intake Note: Pt seen today for PsA follow up. States she will do labs today after visit for methotrexate. 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 Accompanied by: Self / Same As Patient Allergies No Known Allergies [No Known Allergies*] Allergy (Verified 04/05/23 13:22) Medication List - Last Reconciled 04/05/23 by Lula Gutierrez MD adalimumab (Humira) 40 mg (0.8 mL) subcut Q2W albuterol sulfate 90 mcg/actuation (ProAir HFA) 2 puffs inhalation Q6H PRN amlodipine 10 mg PO DAILY atorvastatin 80 mg PO DAILY beclomethasone dipropionate 80 mcg/actuation (Qvar RediHaler) 1 inh inhalation BID clonazepam (Klonopin) 1 mg PO BID cyclobenzaprine 10 mg PO TID PRN diclofenac sodium 1% 2 grams transdermal BID PRN dulaglutide (Trulicity) 1.5 mg subcut QWEEK empagliflozin (Jardiance) 25 mg PO QAM folic acid 1 mg PO DAILY gabapentin 300 mg PO TID glimepiride 2 mg PO DAILY hydrochlorothiazide 25 mg PO DAILY insulin glargine (Lantus U-100 Insulin) 80 units subcut QPM insulin lispro 35 units subcut TID lisinopril 40 mg PO DAILY metformin 1,000 mg PO BID methotrexate sodium 15 mg (6 x 2.5 mg) PO QWEEK metoprolol succinate ER 100 mg PO DAILY omeprazole 20 mg PO DAILY paroxetine HCl (Paxil) 40 mg PO DAILY triamcinolone acetonide 0.1% 1 appl topical BID zolpidem 10 mg PO BEDTIME PRN HPI HPI Comments History of Present Illness Details 58yoF presents for for follow-up of psoriatic arthritis and psoriasis. She was last seen by Ana Luisa Lama 01/03. On MTX 6 tabs weekly, Humira 40mg every 2 weeks and Folic acid 1mg daily. She states that she is doing well overall. She continues to have psoriasis patches on her forehead and both elbows, back. 3-4 days ago she started having pain and swelling of her right little finger. She started having right knee pain today. She believes it is related to her walking more. Takes naproxen 500 mg Twice daily but she feels it is not effective. [facility] Medical History senior living methotrexate user Psoriasis Psoriatic arthritis Surgical History Hx of section Family History Mother Diabetes HTN (hypertension) Social History Alcohol intake: current Alcohol intake frequency: does not drink Patient Tobacco Use Status: Never used Tobacco e-Cigarette/Vaping Use: Never Used Review of Systems Musc Reports arthralgias, Reports joint swelling and Reports stiffness Skin/Breast Reports rash Physical Exam Vital Signs: Last Vital Signs Temp 97.5 F 04/05/23 13:18 Pulse 84 04/05/23 13:18 BP 120/82 04/05/23 13:18 Pulse Ox 97 04/05/23 13:18 BMI result Body Mass Index 38.9 Const General: cooperative, healthy appearing and comfortable Nutritional Appearance: obese morbidly obese Orientation/consciousness: patient oriented x3 Limitations: no limitations HEENT Head: Yes normocephalic and Yes atraumatic Mouth: moist mucous membranes Resp Effort & Inspection: normal respiratory effort and able to speak in complete sentences Skin Other: Large psoriasis patch on her upper forehead and anterior aspect of her scalp Large psoriasis patches on extensor surface of right elbow. Numerous small circular psoriasis patches on the back, small circular psoriasis patches on left forearm. Right 5th finger dactylitis and right 5th MCP tenderness Right wrist pain with full flexion and extension Right knee warmth and pain with full flexion and extend Neuro General: patient oriented x3 Extrem Other: Dactylitis affecting right little finger Left Assessment & Plan Assessment & Plan (1) Psoriatic arthritis: Comment: Humira: February 2017- present Methotrexate: 2017-present Code(s): L40.50 - Arthropathic psoriasis, unspecified Plan: This is a 58-year-old female who presents for evaluation of psoriatic arthritis. On Humira 40 mg every other week and methotrexate 15 mg once weekly Upon evaluation today patient has dactylitis affecting her right little finger and right knee synovitis. Psoriatic arthritis remains active with high inflammatory markers. Will need to advance DMARDs. Advanced Humira to 40 mg every week Continue methotrexate 15 mg once weekly Labs before next visit in 3 months Check Infectious screening labs (2) Psoriasis: Code(s): L40.9 - Psoriasis, unspecified Plan: As above patient is currently on methotrexate 15 mg weekly and Humira every other week. Continues to have large psoriasis patches on forehead, scalp, elbows, back. Will need to advance treatment. Advanced Humira to 40 mg every week and continue methotrexate 15 mg weekly. If no improvement with this change will consider switching to an IL 17 or IL- 23 inhibitor (3) senior living methotrexate user: Code(s): Z79.899 - Other retirement (current) drug therapy Plan: Side effects of methotrexate were discussed with the patient in detail including oral ulcers, elevated LFTs, abdominal discomfort, and possible pancytopenias. Will monitor patient for side effects with frequent lab work. Advised patient to take folic acid daily to prevent complications of methotrexate. Plan I spent 32 minutes reviewing patient's chart, evaluating patient, ordering diagnostic workup, counseling patient and documenting in the chart Orders: Orders Complete Blood Count Auto Diff Today L40.50 - Arthropathic psoriasis, unspecified Erythrocyte Sedimentation Rate Today L40.50 - Arthropathic psoriasis, unspecified C Reactive Protein Today L40.50 - Arthropathic psoriasis, unspecified Hepatitis A,B,C Profile Today Z11.59 - Encounter for screening for other viral diseases T Spot TB Today Z11.7 - Encounter for testing for latent tuberculosis infection Complete Blood Count Auto Diff 3 Months Z79.899 - Other retirement (current) drug therapy Comprehensive Met. Panel 3 Months Z89 - Other retirement (current) drug therapy C Reactive Protein 3 Months Z79.89 - Other retirement (current) drug therapy Erythrocyte Sedimentation Rate 3 Months Z.89 - Other retirement (current) drug therapy Medications: New meloxicam 15 mg PO DAILY PRN 30 tabs 1RF pain (scale score 7-10) Refilled methotrexate sodium 15 mg (6 x 2.5 mg) PO QWEEK 72 tabs 0RF L40.50 - Arthropathic psoriasis, unspecified Coding Level of Care Code Est Pt Level 4 (68077) Diagnoses Psoriatic arthritis L40.50 Psoriasis L40.9 senior living methotrexate user Z79.894
== END 2023-04-05 13:58 | disposition home or self-care (01) ==
PROVIDERS: PCP Internal Medicine; Visit Provider Student in an Organized Health Care Education/Training Program
DX: L40.50 Arthropathic psoriasis, unspecified (principal); L40.9 Psoriasis, unspecified; Z79.899 Other long term (current) drug therapy
CPT/HCPCS: 99214

== ENCOUNTER 2023-04-05 13:14 | Outpatient (REF) | payer MEDICAID, SELFPAY ==
[2023-04-05 14:20] LABS: MANUAL DIFF FLAG NO
[2023-04-05 14:52] LABS: Basophils Percent Auto 0.4 % (0-2); Eosinophils Absolute Auto 0.2 X10*3/uL (0.0-0.4); Eosinophils Percent Auto 1.7 % (0-4); Hematocrit 42.4 % (37.0-47.0); Hemoglobin 13.4 g/dl (12.0-16.0); Imm Gran Abs Auto 0.03 X10*3/uL (0.00-0.03); Imm Gran Pct Auto 0.3 % (0.0-0.4); Lymphocytes Absolute Auto 3.3 X10*3/uL (1.2-4.9); Lymphocytes Percent Auto 36.7 % (20-40); Mean Corpuscular HGB Conc 31.6 g/dl (31.0-35.0); Mean Corpuscular Hemoglobin 29.8 pg (27.0-33.0); Mean Corpuscular Volume 94.4 fL (80.0-98.0); Mean Platelet Volume 10.7 fL (9.4-12.3); Monocytes Absolute Auto 0.9 X10*3/uL (0.1-1.2); Monocytes Percent Auto 10.2 % (2-11); Neutrophils Absolute Auto 4.6 x10*3/uL (2.0-8.3); Neutrophils Percent Auto 50.7 % (45-73); Platelet Count 354 X10*3/uL (160-400); Red Blood Count 4.49 X10*6/uL (4.20-5.50); Red Cell Distribution Width 13.2 % (11.0-16.0)
[2023-04-05 15:35] LABS: Erythrocyte Sedimentation Rate 66 MM/HR (0-20)
[2023-04-05 16:11] LABS: C Reactive Protein 2.37 mg/dL (< or = 0.50)
[2023-04-06 05:59] LABS: HBc Num1 0.16 S/CO (0.00-0.79); HBsAGNum1 0.42 S/CO (0.00-0.99); Hepatitis A Antibody IgM 0.22 Index (0-0.79); Hepatitis B Core Antibody Nonreactive (Nonreactive); Hepatitis B Surface Antigen Negative (Negative); ~HepC Num1 0.13 S/CO (0.00-0.79); ~Hepatitis A Antibody IgM Nonreactive (Nonreactive); ~Hepatitis B Surface Antibody NONREACTIVE (Nonreactive); ~Hepatitis C Antibody Nonreactive (Nonreactive)
[2023-04-07 22:53] LABS: TS Negative Control Passed; TS Panel A 0; TS Panel B 0; TS Positive Control Passed; TSpotTB Negative (Negative)
== END 2023-04-05 13:15 | disposition home or self-care (01) ==
LOC: HO.LAB 13:14
PROVIDERS: PCP Internal Medicine; Visit Provider Student in an Organized Health Care Education/Training Program
DX: L40.50 Arthropathic psoriasis, unspecified (principal); Z11.59 Encounter for screening for other viral diseases; Z11.7 Encounter for testing for latent tuberculosis infection; Z79.899 Other long term (current) drug therapy
CPT/HCPCS: 36415; 85025; 85652; 86140; 86481; 86704; 86706; 86709; 86803; 87340; 99212

== ENCOUNTER 2023-07-10 10:34 | Outpatient (REF) | payer MEDICAID, SELFPAY ==
[2023-07-10 10:56] LABS: MANUAL DIFF FLAG NO
[2023-07-10 11:47] LABS: Basophils Percent Auto 0.3 % (0-2); Eosinophils Absolute Auto 0.1 X10*3/uL (0.0-0.4); Eosinophils Percent Auto 1.7 % (0-4); Hematocrit 41.6 % (37.0-47.0); Hemoglobin 13.3 g/dl (12.0-16.0); Imm Gran Abs Auto 0.01 X10*3/uL (0.00-0.03); Imm Gran Pct Auto 0.2 % (0.0-0.4); Lymphocytes Absolute Auto 2.7 X10*3/uL (1.2-4.9); Lymphocytes Percent Auto 45.8 % (20-40); Mean Corpuscular Hemoglobin 30.6 pg (27.0-33.0); Mean Corpuscular Volume 95.9 fL (80.0-98.0); Mean Platelet Volume 11.1 fL (9.4-12.3); Monocytes Absolute Auto 0.5 X10*3/uL (0.1-1.2); Monocytes Percent Auto 9.1 % (2-11); Neutrophils Absolute Auto 2.5 x10*3/uL (2.0-8.3); Neutrophils Percent Auto 42.9 % (45-73); Platelet Count 353 X10*3/uL (160-400); Red Blood Count 4.34 X10*6/uL (4.20-5.50); Red Cell Distribution Width 14.5 % (11.0-16.0); White Blood Count 5.8 X10*3/uL (4.8-10.8)
[2023-07-10 12:18] LABS: Alanine Aminotransferase 13 U/L (0-31); Albumin Level 3.8 g/dL (3.5-5.0); Alkaline Phosphatase 88 U/L (39-117); Anion Gap 13 (12-20); Aspartate Amino Transferase 18 U/L (5-31); Bilirubin Total 0.3 mg/dL (0.0-1.0); Blood Urea Nitrogen 13 mg/dL (9-16); C Reactive Protein 0.56 mg/dL (< or = 0.50); Calcium 9.4 mg/dL (8.4-10.2); Carbon Dioxide 32 mmol/L (22-29); Chloride 102 mmol/L (96-108); Estimated Glomerular Filt Rate > 60; Glucose Random 81 mg/dL (60-115); Potassium 4.2 mmol/L (3.3-5.1); Sodium 143 mmol/L (135-145); Total Protein 8.9 g/dL (6.5-8.0)
[2023-07-10 12:42] LABS: Erythrocyte Sedimentation Rate 59 MM/HR (0-20)
== END 2023-07-10 10:35 | disposition home or self-care (01) ==
LOC: HO.LAB 10:34
PROVIDERS: PCP Internal Medicine; Visit Provider Student in an Organized Health Care Education/Training Program
DX: Z79.899 Other long term (current) drug therapy (principal)
CPT/HCPCS: 36415; 80053; 85025; 85652; 86140

== ENCOUNTER 2023-07-25 12:06 | Outpatient (REF) | payer MEDICAID, SELFPAY ==
[2023-07-25 12:49] LABS: Estimated Average Glucose 226 mg/dL; Hemoglobin A1c % 9.5 % (<6.0)
[2023-07-25 13:16] LABS: Alanine Aminotransferase 11 U/L (0-31); Albumin Level 4.1 g/dL (3.5-5.0); Alkaline Phosphatase 99 U/L (39-117); Anion Gap 12 (12-20); Aspartate Amino Transferase 17 U/L (5-31); Bilirubin Total 0.4 mg/dL (0.0-1.0); Blood Urea Nitrogen 13 mg/dL (9-16); Calcium 10.7 mg/dL (8.4-10.2); Carbon Dioxide 33 mmol/L (22-29); Chloride 101 mmol/L (96-108); Estimated Glomerular Filt Rate > 60; Glucose Random 54 mg/dL (60-115); Potassium 3.5 mmol/L (3.3-5.1); Sodium 142 mmol/L (135-145); Total Protein 9.3 g/dL (6.5-8.0)
== END 2023-07-25 12:07 | disposition home or self-care (01) ==
LOC: HO.LAB 12:06
PROVIDERS: PCP Internal Medicine; Visit Provider Internal Medicine
DX: E11.65 Type 2 diabetes mellitus with hyperglycemia (principal); G47.33 Obstructive sleep apnea (adult) (pediatric); I10 Essential (primary) hypertension; Z68.38 Body mass index [BMI] 38.0-38.9, adult
CPT/HCPCS: 36415; 80053; 83036

== ENCOUNTER 2023-11-20 13:42 | Outpatient (AMB) | payer MEDICAID, SELFPAY ==
--- NOTE | 2023-11-20 14:01 | A.OFFVIS_ITS ---
Intake Vital Signs 3 11/20/23 14:03 Height 5 ft 2 in Weight 212 lb 15.465 oz BMI 38.9 BP 160/80 H Blood Pressure Location Rt brachial Position Sitting Pulse 80 Pulse Source Pulse Oximeter Pulse Oximetry (%) 97 Oxygen Delivery Method Room Air Intake Visit Reasons: PSA/CM Intake Note: Patient last seen 04/05/23 presents today for follow up and test results. Lifestyle Block Farmer Required: No Accompanied by: Self / Same As Patient Allergies No Known Allergies [No Known Allergies*] Allergy (Verified 11/20/23 14:09) Medication List - Last Reconciled 11/20/23 by Lula Gutierrez MD adalimumab (Humira) 40 mg (0.8 mL) subcut QWEEK albuterol sulfate 90 mcg/actuation (ProAir HFA) 2 puffs inhalation Q6H PRN amlodipine 10 mg PO DAILY atorvastatin 80 mg PO DAILY beclomethasone dipropionate 80 mcg/actuation (Qvar RediHaler) 1 inh inhalation BID clonazepam (Klonopin) 1 mg PO BID cyclobenzaprine 10 mg PO TID PRN diclofenac sodium 1% 2 grams transdermal BID PRN dulaglutide (Trulicity) 1.5 mg subcut QWEEK empagliflozin (Jardiance) 25 mg PO QAM folic acid 1 mg PO DAILY gabapentin 300 mg PO TID glimepiride 2 mg PO DAILY hydrochlorothiazide 25 mg PO DAILY insulin glargine (Lantus U-100 Insulin) 80 units subcut QPM insulin lispro 35 units subcut TID lisinopril 40 mg PO DAILY meloxicam 15 mg PO DAILY PRN metformin 1,000 mg PO BID methotrexate sodium 15 mg (6 x 2.5 mg) PO QWEEK metoprolol succinate ER 100 mg PO DAILY omeprazole 20 mg PO DAILY paroxetine HCl (Paxil) 40 mg PO DAILY triamcinolone acetonide 0.1% 1 appl topical BID zolpidem 10 mg PO BEDTIME PRN HPI HPI Comments 2 History of Present Illness0 Details 58yoF presents for for follow-up of psoriatic arthritis and psoriasis. She was last seen 04/05. On MTX 6 tabs weekly, Humira 40mg weekly and Folic acid 1mg daily. She states that since she has been doing the Humira weekly rashes have improved. The rash on her belly, the rashes are generally less itchy however she continues to have large patches on her right forearm, her back, scalp and behind her ears. Continues to have intermittent swelling of right 5th finger. Still have intermittent right knee pain, usually worse when it is cold. She takes naproxen for 2-3 days monthly [facility]LY [facility], [facility] Medical History Psoriasis Psoriatic arthritis Surgical History Hx of section Family History Mother Diabetes HTN (hypertension) Social History Alcohol intake: current Alcohol intake frequency: does not drink Patient Tobacco Use Status: Never used Tobacco e-Cigarette/Vaping Use: Never Used Review of Systems Musc Reports arthralgias and Reports stiffness Skin/Breast Reports rash Physical Exam Vital Signs: Last Vital Signs Pulse 80 11/20/23 14:03 BP 160/80 H 11/20/23 14:03 Pulse Ox 97 11/20/23 14:03 Oxygen Delivery Method Room Air 11/20/23 14:03 BMI result Body Mass Index 38.9 Const General: cooperative, healthy appearing and comfortable Nutritional Appearance: obese morbidly obese Orientation/consciousness: patient oriented x3 Limitations: no limitations HEENT Head: Yes normocephalic and Yes atraumatic Mouth: moist mucous membranes Resp Effort & Inspection: normal respiratory effort and able to speak in complete sentences Skin Other: Large psoriasis patch on her upper forehead and anterior aspect of her scalp Large psoriasis patches on extensor surface of right elbow. Numerous small circular psoriasis patches on the back Psoriasis patches on left elbow resolved Neuro General: patient oriented x3 Extrem Other: Nontender swelling of right 5th finger Nontender swelling of left 5th finger No knee tenderness or swelling bilaterally No knee pain with full flexion-extension bilaterally Assessment & Plan Assessment & Plan (1) Psoriatic arthritis: Comment: Humira: 02/2017 advanced to weekly 06/2023 Methotrexate: 2017-present Code(s): L40.50 - Arthropathic psoriasis, unspecified Plan: This is a 58-year-old female who presents for evaluation of psoriatic arthritis. On methotrexate 15 mg weekly. Last visit Humira was advanced from biweekly to weekly. She has mild improvement in her psoriasis, rashes are less itchy however, she continues to have large psoriasis patches and we will need to change DMARDs Discussed risks and benefits of Taltz. Patient agreed to proceed. Will start prior authorization for Taltz Continue methotrexate 15 mg weekly Continue folic acid 1 mg daily Labs today and before next visit in 3 months (2) Psoriasis: Code(s): L40.9 - Psoriasis, unspecified Plan: As above patient is currently on methotrexate 15 mg weekly and Humira weekly. Continues to have large psoriasis patches on forehead, scalp, right elbow elbow, back. Will need to change DMARDs. As mentioned above, will start prior authorization for Taltz (3) [facility] methotrexate user: Code(s): Z79.899 - Other assisted (current) drug therapy Plan: Side effects of methotrexate were discussed with the patient in detail including oral ulcers, elevated LFTs, abdominal discomfort, and possible pancytopenias. Will monitor patient for side effects with frequent lab work. Advised patient to take folic acid daily to prevent complications of methotrexate. Plan I spent 32 minutes reviewing patient's chart, evaluating patient, ordering diagnostic workup, counseling patient and documenting in the chart Orders: Orders 2 Complete Blood Count Auto Diff Today L40.50 - Arthropathic psoriasis, unspecified, Z79.899 - Other extermination supervisor (current) drug therapy Erythrocyte Sedimentation Rate Today L40.50 - Arthropathic psoriasis, unspecified, Z79.899 - Other extermination supervisor (current) drug therapy Complete Blood Count Auto Diff Today L40.50 - Arthropathic psoriasis, unspecified, Z79.899 - Other assisted (current) drug therapy Complete Blood Count Auto Diff 02/18/24 L40.50 - Arthropathic psoriasis, unspecified, Z79.899 - Other assisted (current) drug therapy Complete Blood Count Auto Diff 05/18/24 L40.50 - Arthropathic psoriasis, unspecified, Z79.899 - Other extermination supervisor (current) drug therapy C Reactive Protein 02/18/24 L40.50 - Arthropathic psoriasis, unspecified, Z79.899 - Other assisted (current) drug therapy C Reactive Protein 05/18/24 L40.50 - Arthropathic psoriasis, unspecified, Z79.899 - Other assisted (current) drug therapy Erythrocyte Sedimentation Rate Today L40.50 - Arthropathic psoriasis, unspecified, Z79.899 - Other assisted (current) drug therapy Erythrocyte Sedimentation Rate 02/18/24 L40.50 - Arthropathic psoriasis, unspecified, Z79.899 - Other extermination supervisor (current) drug therapy Comprehensive Met. Panel Today L40.50 - Arthropathic psoriasis, unspecified, Z79.899 - Other assisted (current) drug therapy C Reactive Protein Today L40.50 - Arthropathic psoriasis, unspecified, Z79.899 - Other extermination supervisor (current) drug therapy Complete Blood Count Auto Diff 08/16/24 L40.50 - Arthropathic psoriasis, unspecified, Z79.899 - Other extermination supervisor (current) drug therapy Comprehensive Met. Panel Today L40.50 - Arthropathic psoriasis, unspecified, Z79.899 - Other extermination supervisor (current) drug therapy Comprehensive Met. Panel 02/18/24 L40.50 - Arthropathic psoriasis, unspecified, Z79.899 - Other assisted (current) drug therapy Comprehensive Met. Panel 05/18/24 L40.50 - Arthropathic psoriasis, unspecified, Z79.899 - Other extermination supervisor (current) drug therapy Comprehensive Met. Panel 08/16/24 L40.50 - Arthropathic psoriasis, unspecified, Z79.899 - Other assisted (current) drug therapy C Reactive Protein Today L40.50 - Arthropathic psoriasis, unspecified, Z79.899 - Other extermination supervisor (current) drug therapy C Reactive Protein 08/16/24 L40.50 - Arthropathic psoriasis, unspecified, Z79.899 - Other assisted (current) drug therapy Erythrocyte Sedimentation Rate 05/18/24 L40.50 - Arthropathic psoriasis, unspecified, Z79.899 - Other extermination supervisor (current) drug therapy Erythrocyte Sedimentation Rate 08/16/24 L40.50 - Arthropathic psoriasis, unspecified, Z79.899 - Other extermination supervisor (current) drug therapy Coding Level of Care Code Est Pt Level 4 (24335) Diagnoses Psoriatic arthritis L40.50 Psoriasis L40.9 [facility] methotrexate user Z79.899
[2023-11-20 14:03] VITALS: BP 160/80; PULSE 80; O2SAT 97; BMI 38.9
== END 2023-11-20 14:22 | disposition home or self-care (01) ==
PROVIDERS: PCP Internal Medicine; Referring Provider Internal Medicine; Visit Provider Student in an Organized Health Care Education/Training Program
DX: L40.50 Arthropathic psoriasis, unspecified (principal); L40.9 Psoriasis, unspecified; Z79.899 Other long term (current) drug therapy
CPT/HCPCS: 99214

== ENCOUNTER → 2023-11-20 13:42 | Outpatient (BNVA) | payer MEDICAID, SELFPAY | PROVIDERS: PCP Internal Medicine; Visit Provider Student in an Organized Health Care Education/Training Program | DX: L40.50 Arthropathic psoriasis, unspecified (principal); L40.9 Psoriasis, unspecified; Z79.899 Other long term (current) drug therapy | CPT/HCPCS: 99212 ==

== ENCOUNTER 2023-11-24 13:19 | Outpatient (REF) | payer MEDICAID, SELFPAY | END 2023-11-24 13:20 | disposition home or self-care (01) | LOC: HO.MAMMO 13:19 | PROVIDERS: PCP Internal Medicine; Visit Provider Internal Medicine | DX: Z12.31 Encounter for screening mammogram for malignant neoplasm of breast (principal) | CPT/HCPCS: 77063; 77067 ==

== ENCOUNTER → 2023-11-24 13:30 | Outpatient (BNV) | payer MEDICAID, SELFPAY | PROVIDERS: PCP Internal Medicine; Visit Provider Radiology Diagnostic Radiology | DX: Z12.31 Encounter for screening mammogram for malignant neoplasm of breast (principal) | CPT/HCPCS: 77063; 77067 ==

== ENCOUNTER 2024-01-19 13:57 | Outpatient (REF) | payer MEDICAID, SELFPAY ==
[2024-01-19 15:09] LABS: Estimated Average Glucose 212 mg/dL
[2024-01-19 15:36] LABS: Parathyroid Hormone Intact 74.9 pg/mL (8.7-77.1)
[2024-01-19 15:51] LABS: Vitamin D 25-OH Total 8.8 ng/mL (>30)
[2024-01-19 16:04] LABS: Alanine Aminotransferase 11 U/L (0-31); Albumin Level 4.2 g/dL (3.5-5.0); Alkaline Phosphatase 83 U/L (39-117); Anion Gap 12 (12-20); Aspartate Amino Transferase 15 U/L (5-31); Bilirubin Total 0.4 mg/dL (0.0-1.0); Blood Urea Nitrogen 18 mg/dL (9-16); Calcium 10.5 mg/dL (8.4-10.2); Carbon Dioxide 33 mmol/L (22-29); Chloride 102 mmol/L (96-108); Cholesterol 214 mg/dL (<200); Estimated Glomerular Filt Rate > 60; Glucose Random 44 mg/dL (60-115); HDL Cholesterol 50 mg/dL (>40); LDL Cholesterol Calculated 104 mg/dL (<100); Phosphorus 2.7 mg/dL (2.7-4.5); Potassium 3.8 mmol/L (3.3-5.1); Sodium 143 mmol/L (135-145); Triglycerides 303 mg/dL (<150)
== END 2024-01-19 13:58 | disposition home or self-care (01) ==
LOC: HO.LAB 13:57
PROVIDERS: PCP Internal Medicine; Visit Provider Internal Medicine
DX: E11.65 Type 2 diabetes mellitus with hyperglycemia (principal); E78.00 Pure hypercholesterolemia, unspecified; E83.52 Hypercalcemia; H61.23 Impacted cerumen, bilateral; M54.50 Low back pain, unspecified
CPT/HCPCS: 36415; 80053; 80061; 82043; 82306; 82570; 83036; 83970; 84100

== ENCOUNTER 2024-02-19 13:00 | Outpatient (REF) | payer MEDICAID, SELFPAY ==
[2024-02-19 13:15] LABS: MANUAL DIFF FLAG NO
[2024-02-19 14:50] LABS: Basophils Percent Auto 0.5 % (0-2); Eosinophils Absolute Auto 0.1 X10*3/uL (0.0-0.4); Eosinophils Percent Auto 1.6 % (0-4); Hematocrit 43.6 % (37.0-47.0); Hemoglobin 14.2 g/dl (12.0-16.0); Imm Gran Abs Auto 0.03 X10*3/uL (0.00-0.03); Imm Gran Pct Auto 0.4 % (0.0-0.4); Lymphocytes Absolute Auto 2.1 X10*3/uL (1.2-4.9); Lymphocytes Percent Auto 28.5 % (20-40); Mean Corpuscular HGB Conc 32.6 g/dl (31.0-35.0); Mean Corpuscular Hemoglobin 31.5 pg (27.0-33.0); Mean Corpuscular Volume 96.7 fL (80.0-98.0); Monocytes Absolute Auto 0.7 X10*3/uL (0.1-1.2); Monocytes Percent Auto 9.4 % (2-11); Neutrophils Absolute Auto 4.4 x10*3/uL (2.0-8.3); Neutrophils Percent Auto 59.6 % (45-73); Platelet Count 293 X10*3/uL (160-400); Red Blood Count 4.51 X10*6/uL (4.20-5.50); Red Cell Distribution Width 13.3 % (11.0-16.0); White Blood Count 7.5 X10*3/uL (4.8-10.8)
[2024-02-19 15:13] LABS: Alanine Aminotransferase 13 U/L (0-31); Alkaline Phosphatase 86 U/L (39-117); Anion Gap 11 (12-20); Aspartate Amino Transferase 16 U/L (5-31); Bilirubin Total 0.5 mg/dL (0.0-1.0); Blood Urea Nitrogen 15 mg/dL (9-16); C Reactive Protein 0.48 mg/dL (< or = 0.50); Calcium 10.2 mg/dL (8.4-10.2); Carbon Dioxide 32 mmol/L (22-29); Chloride 99 mmol/L (96-108); Estimated Glomerular Filt Rate > 60; Glucose Random 273 mg/dL (60-115); Potassium 4.3 mmol/L (3.3-5.1); Sodium 138 mmol/L (135-145); Total Protein 8.6 g/dL (6.5-8.0)
[2024-02-19 15:26] LABS: Erythrocyte Sedimentation Rate 34 MM/HR (0-20)
== END 2024-02-19 13:01 | disposition home or self-care (01) ==
LOC: HO.LAB 13:00
PROVIDERS: PCP Internal Medicine; Visit Provider Student in an Organized Health Care Education/Training Program
DX: L40.50 Arthropathic psoriasis, unspecified (principal); Z79.899 Other long term (current) drug therapy
CPT/HCPCS: 36415; 80053; 85025; 85652; 86140

== ENCOUNTER 2024-02-20 14:15 | Outpatient (AMB) | payer MEDICAID, SELFPAY ==
--- NOTE | 2024-02-20 14:17 | MHC.OFFVIS ---
Vital Signs 02/20/24 14:20 Height 5 ft 2 in Weight 203 lb 0.732 oz BMI 37.1 BP 120/80 Blood Pressure Location Lt brachial Position Sitting Pulse 76 Pulse Source Pulse Oximeter Pulse Oximetry (%) 90 L Oxygen Delivery Method Room Air Intake Visit Reasons: PsA/CM Intake Note: Patient presents for PsA. Patient stated she knows some Divehi and doesn't need a per diem interpreter. City Tax Auditor Services: City Tax Auditor Offered & Declined Allergies No Known Allergies [No Known Allergies*] Allergy (Verified 02/20/24 14:19) Medication List - Last Reconciled 02/20/24 by Lula Gutierrez MD albuterol sulfate 90 mcg/actuation (ProAir HFA) 2 puffs inhalation Q6H PRN amlodipine 10 mg PO DAILY atorvastatin 80 mg PO DAILY beclomethasone dipropionate 80 mcg/actuation (Qvar RediHaler) 1 inh inhalation BID ceramide 1,3,4-BB-fgxl-hyalur ER (CeraVe PM lotion,extended release) 1 appl topical BEDTIME clonazepam (Klonopin) 1 mg PO BID cyclobenzaprine 10 mg PO TID PRN diclofenac sodium 1% 2 grams transdermal BID PRN dulaglutide (Trulicity) 1.5 mg subcut QWEEK empagliflozin (Jardiance) 25 mg PO QAM folic acid 1 mg PO DAILY gabapentin 300 mg PO TID glimepiride 2 mg PO DAILY hydrochlorothiazide 25 mg PO DAILY insulin glargine (Lantus U-100 Insulin) 80 units subcut QPM insulin lispro 35 units subcut TID lisinopril 40 mg PO DAILY meloxicam 15 mg PO DAILY PRN metformin 1,000 mg PO BID methotrexate sodium 15 mg (6 x 2.5 mg) PO QWEEK metoprolol succinate ER 100 mg PO DAILY omeprazole 20 mg PO DAILY paroxetine HCl (Paxil) 40 mg PO DAILY Taltz Autoinjector (ixekizumab) Administer 160 mg (2 pens) at week 0 then 80 mg every 4 weeks NS triamcinolone acetonide 0.1% 1 appl topical BID zolpidem 10 mg PO BEDTIME PRN HPI Comments Details: 58yoF presents for for follow-up of psoriatic arthritis and psoriasis. She was last seen 11/2023 On MTX 6 tabs weekly, folic acid 1 mg daily and Taltz started 12/2023. Patient states that she is doing fairly well overall. Her psoriasis rashes are itchy overall. Continues to have arthralgias but no swollen joints. [facility] Medical History Psoriasis Psoriatic arthritis Surgical History Hx of section Family History Mother Diabetes HTN (hypertension) Social History Alcohol intake: current Alcohol intake frequency: does not drink Patient Tobacco Use Status: Never used Tobacco e-Cigarette/Vaping Use: Never Used Review of Systems Musc Reports arthralgias and Reports stiffness Skin/Breast Reports rash Physical Exam Vital Signs: Last Vital Signs Pulse 76 02/20/24 14:20 BP 120/80 02/20/24 14:20 Pulse Ox 90 L 02/20/24 14:20 Oxygen Delivery Method Room Air 02/20/24 14:20 BMI result Body Mass Index 37.1 Const General: cooperative, healthy appearing and comfortable Nutritional Appearance: obese morbidly obese Orientation/consciousness: patient oriented x3 Limitations: no limitations HEENT Head: Yes normocephalic and Yes atraumatic Mouth: moist mucous membranes Resp Effort & Inspection: normal respiratory effort and able to speak in complete sentences Skin Other: Psoriasis patches on her elbows are about the same. Patches on her face are improved, less severe. Neuro General: patient oriented x3 Extrem Other: Nontender swelling of right 5th finger Nontender swelling of left 5th finger No active synovitis No knee tenderness or swelling bilaterally No knee pain with full flexion-extension bilaterally Assessment & Plan Assessment & Plan (1) Psoriatic arthritis: Comment: Humira: 02/2017 advanced to weekly 06/2023 ineffective for skin Methotrexate: 2017-present Taltz 12/2023 Code(s): L40.50 - Arthropathic psoriasis, unspecified Category: Medical Plan: This is a 58-year-old female who presents for evaluation of psoriatic arthritis. On methotrexate 15 mg weekly, folic acid 1 mg daily and Taltz 80 mg q.4 weeks. There is no active synovitis on exam, she has minimal joint complaints which are likely a result of chronic damage and deformity from psoriatic arthritis in addition to osteoarthritis. Psoriasis rashes improving with Taltz Continue current medications Labs before next visit in 4 months (2) Psoriasis: Code(s): L40.9 - Psoriasis, unspecified Category: Medical Plan: Some improvement with Taltz. 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: Code(s): Z79.899 - Other endorsement clerk (current) drug therapy Category: Medical Plan: Monitor safety labs regularly Plan I spent 32 minutes reviewing patient's chart, evaluating patient, ordering diagnostic workup, counseling patient and documenting in the chart Medications: New ceramide 1,3,0-ZN-fekt-hyalur ER (CeraVe PM lotion,extended release) 1 appl topical BEDTIME 89 mL 2RF L40.9 - Psoriasis, unspecified, L85.3 - Xerosis cutis Refilled methotrexate sodium 15 mg (6 x 2.5 mg) PO QWEEK 96 tabs 0RF L40.50 - Arthropathic psoriasis, unspecified Coding Level of Care Code Est Pt Level 4 (16117) Diagnoses Psoriatic arthritis L40.50 Psoriasis L40.9 director of retail analytics methotrexate user Z79.899
[2024-02-20 14:20] VITALS: BP 120/80; PULSE 76; O2SAT 90; BMI 37.1
== END 2024-02-20 14:38 | disposition home or self-care (01) ==
PROVIDERS: PCP Internal Medicine; Referring Provider Internal Medicine; Visit Provider Student in an Organized Health Care Education/Training Program
DX: L40.50 Arthropathic psoriasis, unspecified (principal); L40.9 Psoriasis, unspecified; Z79.899 Other long term (current) drug therapy
CPT/HCPCS: 99214

== ENCOUNTER → 2024-02-20 14:15 | Outpatient (BNVA) | payer MEDICAID, SELFPAY | PROVIDERS: PCP Internal Medicine; Visit Provider Student in an Organized Health Care Education/Training Program | DX: L40.50 Arthropathic psoriasis, unspecified (principal); L40.9 Psoriasis, unspecified; Z79.899 Other long term (current) drug therapy | CPT/HCPCS: 99212 ==

== ENCOUNTER 2024-05-02 12:08 | Outpatient (REF) | payer MEDICAID, SELFPAY ==
[2024-05-02 12:57] LABS: Estimated Average Glucose 197 mg/dL; Hemoglobin A1c % 8.5 % (<6.0)
[2024-05-02 13:09] LABS: Alanine Aminotransferase 19 U/L (0-31); Albumin Level 3.7 g/dL (3.5-5.0); Alkaline Phosphatase 75 U/L (39-117); Anion Gap 10 (12-20); Aspartate Amino Transferase 15 U/L (5-31); Bilirubin Total 0.3 mg/dL (0.0-1.0); Blood Urea Nitrogen 16 mg/dL (9-16); Calcium 10.2 mg/dL (8.4-10.2); Carbon Dioxide 31 mmol/L (22-29); Chloride 105 mmol/L (96-108); Cholesterol 155 mg/dL (<200); Estimated Glomerular Filt Rate > 60; Glucose Random 134 mg/dL (60-115); HDL Cholesterol 46 mg/dL (>40); LDL Cholesterol Calculated 75 mg/dL (<100); Potassium 4.2 mmol/L (3.3-5.1); Sodium 142 mmol/L (135-145); Total Protein 7.7 g/dL (6.5-8.0); Triglycerides 174 mg/dL (<150)
[2024-05-02 13:26] LABS: Vitamin D 25-OH Total 20.3 ng/mL (>30)
== END 2024-05-02 12:09 | disposition home or self-care (01) ==
LOC: HO.LAB 12:08
PROVIDERS: PCP Internal Medicine; Visit Provider Internal Medicine
DX: Z00.01 Encounter for general adult medical examination with abnormal findings (principal); E11.65 Type 2 diabetes mellitus with hyperglycemia; E78.00 Pure hypercholesterolemia, unspecified; E83.52 Hypercalcemia
CPT/HCPCS: 36415; 80053; 80061; 82306; 83036

== ENCOUNTER 2024-10-09 13:01 | Outpatient (AMB) | payer MEDICAID, SELFPAY ==
--- NOTE | 2024-10-09 13:27 | MHC.OFFVIS ---
Vital Signs 10/09/24 13:41 Height 5 ft 2 in Weight 216 lb 0.848 oz BMI 39.5 BP 136/84 Blood Pressure Location Lt brachial Position Sitting Pulse 110 H Pulse Source Pulse Oximeter Pulse Oximetry (%) 98 Oxygen Delivery Method Room Air Intake Visit Reasons: Colonoscopy screening office visit Intake Note: NEW PATIENT for 2nd lifetime screening. Last January 2014. Chief Complaint; Pt denies any GI concerns currently and reports that their conditions are well controlled. Child Custody Evaluator Required: Yes Child Custody Evaluator Services: Child Custody Evaluator Offered & Declined Child Custody Evaluator Name: Family Information Interpreted: non-clinical & clinical Accompanied by: Son Allergies No Known Allergies [No Known Allergies*] Allergy (Verified 10/09/24 13:27) HPI HPI Colonoscopy screening office visit: Details: 59 year old? female with past medical history of diabetes, hypercholesteremia, depression, epilepsy, asthma, hypertension, psoriatic arthritis is here today for pre colonoscopy screening.? Patient was sent to us by her PCP.? Last colonoscopy in August of [address] Lan. No polyps found. Patient denies any gastrointestinal symptoms in the past or at present.? Denies any personal or family history of gastrointestinal disease, colon polyps, or CRC.? Denies history of difficulty with sedation or anesthesia in the past.? Negative for history of sleep apnea.? Denies any history of cardiac, renal, pulmonary, or hepatic disease.?? No history of infectious? diseases like hepatitis A, B, C, HIV or tuberculosis.? Patient is on low-dose aspirin. Patient is diabetic is on Lispro and Lantus. Patient also takes Trulicity weekly [facility] Medical History Psoriasis Psoriatic arthritis Surgical History Hx of section Family History Mother Diabetes HTN (hypertension) Social History Alcohol intake: current Alcohol intake frequency: does not drink Patient Tobacco Use Status: Never used Tobacco e-Cigarette/Vaping Use: Never Used Review of Systems Const Denies weight gain and Denies weight loss ENT Reports no additional complaints, Denies dysphagia and Denies odynophagia Card Reports no additional complaints Resp Reports no additional complaints GI Denies abdominal pain, Denies belching, Denies melena, Denies bloating, Denies change in bowel habits, Denies dysphagia, Denies excessive flatus, Denies dyspepsia, Denies heartburn, Denies diarrhea, Denies loose stools, Denies nausea, Denies odynophagia and Denies vomiting Musc Reports no additional complaints Neuro Reports no additional complaints Psych Reports no additional complaints Endo Reports no additional complaints Physical Exam Vital Signs: Last Vital Signs Pulse 110 H 10/09/24 13:41 BP 136/84 10/09/24 13:41 Pulse Ox 98 10/09/24 13:41 Oxygen Delivery Method Room Air 10/09/24 13:41 BMI result Body Mass Index 39.5 Const General: healthy appearing and no acute distress Nutritional Appearance: obese Orientation/consciousness: patient oriented x3 Resp Effort & Inspection: normal respiratory effort, able to speak in complete sentences, no tracheal deviation and symmetric chest movement Auscultation: clear to auscultation bilaterally Cardio Rate: regular rate GI Inspection: Yes normal to inspection, No distended and Yes obesity Palpation (GI): Soft to palpation, not firm, nontender and No hepatosplenomegaly present Auscultation: normal bowel sounds General: Yes no CVA tenderness Back/Spine/Pelvis Back: no CVA tenderness Skin General skin exam: elasticity normal, turgor normal and dry skin Neuro General: patient oriented x3 Psych Appearance: grossly normal Mental Status: mental status grossly normal Assessment & Plan Assessment & Plan (1) Screen for colon cancer: Code(s): Z12.11 - Encounter for screening for malignant neoplasm of colon (2) Asthma: Code(s): J45.909 - Unspecified asthma, uncomplicated Category: Medical Qualifiers: Asthma severity: moderate Asthma persistence: persistent Asthma complication type: uncomplicated Qualified Code(s): J45.40 - Moderate persistent asthma, uncomplicated Plan Patient denies any GI, cardiac or respiratory symptoms. Although up on exam patient had expiratory wheeze. Referral sent to pulmonology.? Denies any issues with anesthesia in the past.? Denies any history of sleep apnea.? No history infectious diseases in the past or present.? Patient is on low-dose aspirin. Patient is taking lispro 3 times a day and Lantus at bedtime as well as Trulicity. Patient will hold Lispro day before procedure and day of procedure until returns home and has a meal. Patient will take half of her Lantus 2 nights and half of the Lantus 1 night before procedure. Hold Trulicity as per anesthesia protocol. No family or personal history of colon cancer or polyps.? Patient denies melena, hematochezia, unintentional weight loss or ribbon like stools.? Discussed at length the pre-procedure,? prep, diet & medications as well as what to expect prior, during and after the procedure.?? Stressed the importance of good bowel prep.? Recommended the use of Vaseline or Calmoseptine OTC & baby wipes with bowel movements to promote comfort.? ?Patient verbalizes understanding and agrees to plan of care.? She was given the opportunity to ask questions and all questions answered.? We will see her after the procedure.? Orders: Referrals Pulmonology Referral J45.909 - Unspecified asthma, uncomplicated, R06.2 - Wheezing Medications: New bisacodyl (Dulcolax (bisacodyl)) take 4 tabs at noon the day before your colonoscopy 20 mg (4 x 5 mg) PO ONCE 1 day 4 tabs 0RF Z12.11 - Encounter for screening for malignant neoplasm of colon polyethylene glycol 3350 (Miralax) As directed by gastroenterology department at [facility] 238 grams PO ONCE 238 grams 0RF Z12.11 - Encounter for screening for malignant neoplasm of colon Coding Level of Care Code New Pt Level 3 (11142) Diagnoses Screen for colon cancer Z12.11 Moderate persistent asthma without complication J45.40 Asthma severity: moderate Asthma persistence: persistent Asthma complication type: uncomplicated Time Spent (min) 40 Comment 30 minutes spent with patient and additional 10 minutes spent reviewing her records
[2024-10-09 13:41] VITALS: BP 136/84; PULSE 110; O2SAT 98; BMI 39.5
--- OUTSIDE RECORDS SUMMARY | 2024-10-09 16:00 | XMS_ITS | Data Portability ---
Author Organization [place] - [facility], Allergy Address [address] [address] Care Team Providers Care Painter Bottom Name Role Phone DARYA ALONZO Primary Care Provider Assessment Encounter Date Assessment Date Assessment LastModified by Organization Details LastModified Time 04/10/2024 04/10/2024 Patient with history of type 2 diabetes and otitis externa presents with bilateral ear pain right greater than left. No eating drinking or swallowing difficulties. There is a small amount of squamous debris in both ear canals. She also has a right TMJ that is tender. Suggest warm compresses, soft diet and massage. Suggest 3 drops distilled vinegar twice weekly and avoidance of Q-tips. Follow-up in 3 weeks with audiometric testing. Consider fiberoptic laryngoscopy if persistent ear pain of unclear etiology sherine Not available 04/10/2024 11:16:40 05/02/2024 05/02/2024 59 year old female presents for follow up of her right greater than left ear pain. It is improved since the last office visit. Audiometric testing today demonstrated normal hearing. I have encouraged her to continue the vinegar drops and TMJ precautions. She will follow up on an as needed basis. In the future if her ear pain recurs with normal exam we may want to consider flexible laryngoscopy. [email or web address] Not available 05/02/2024 12:01:21 Plan of Treatment Reminders Order Date Submit Date Provider Last Modified By Organization Details Last Modified Time Details Appointments None record ed. Lab None record ed. Referral None record ed. Procedures None record ed. Surgeries None record ed. Imaging None record ed. Medication Orders None record ed. Patient TargetsNo targets recorded. Patient InstructionsNo instructions recorded. Reason for Referral None Reported. Results Created Date Observation Date Name Description Value Unit Range Abnormal Flag Note LastModifiedBy Organization Detail LastModifiedTime 05/03/20 24 audio gram No observ ation record ed. [email or web address] Not Available 04/15 12:04:27 Result Notes None recorded. Problems Name Problem SNOMED Code Status Onset Date Resolution Date Notes Provider Name and Address Organization Details Recorded Time Disorder of right Eustachia n tube 81669449823 Active 2019 Other specified disorders of Eustachia n tube, right ear; Note: Date Diagnosed : 08/30/2019 1:23 PM (H69.81) Not Available [facility] 4 02:15:03 Impacted cerumen in left ear 51629461491 Active 2019 Impacted cerumen, left ear; Note: Date Diagnosed : 08/30/2019 1:23 PM (H61.22) Not Available [facility] 4 02:15:35 Diffuse otitis externa 08405141 Active 2019 Diffuse otitis externa, right ear; Note: Date Diagnosed : 09/02/2019 10:58 AM (H60.311) Not Available [facility] 4 02:15:17 Bilateral earache 241701102 Active 2023 ANA MARÍA VAZQUEZ MD [address] [place] [address],[place] [address], [place], [address] , [place] - [facility] 4 11:15:41 Impacted cerumen of bilateral ears 57153356465 05831 Active 2023 ANA MARÍA VAZQUEZ MD [address] [place] [address],[place] [address], [place], [address] , [place] [facility] 4 11:15:47 Type 2 diabetes mellitus 96530206 Active 2023 ANA MARÍA VAZQUEZ MD [address] [place] [address],[place] [address], [place], [address] , [place] [facility] 4 11:16:51 Problem Notes None recorded. Procedures Surgical History Date Name Laterality Status Provider Name and Address Organization Details Recorded Time 05/02/2024 Air & Speech Audio with Tymps (47913, 43957 & 12227) completed MARLY ROLLINS [place], [facility] [address] [place] [address],[place] [address], [place], [address], [place] - [facility] 05/02/2024 11:20:41 Imaging Results Imaging Date Name Status LastModified by [facility] Details LastModified Time 05/03/2024 audiogram completed [email or web address] Information n ot available 05/03/2024 12:04:27 Procedure Notes None recorded. Medical Equipment None Reported. Medications Name Sig Start Date Stop Date Status Note LastModified by Organization Details LastModified Time cyclobenza wilman 10 mg tablet TAKE 1 TABLET BY MOUTH THREE TIMES A DAY NEEDED FOR MUSCLE SPASM active Not Available Not Available No t Available atorvastat in 40 mg tablet TAKE 1 TABLET BY MOUTH EVERY DAY active Not Available Not Available No t Available atorvastat in 80 mg tablet TAKE 1 TABLET BY MOUTH EVERY DAY active Not Available Not Available No t Available atorvastat in 20 mg tablet 2018 active Medicatio n ID: [id number] Du ration Value: 30 Brand Name: atorvasta tin Send Method: E-Prescri bed Subs Allowed: subs OK Specia l Instructi on: TAKE 1 TABLET BY MOUTH EVERYDAY AT BEDTIME M edication GenericNa me: atorvasta tin Not Available Not Available Not Available ammonium lactate 12 % lotion APPLY TO SOLES OF FEET DAILY. AT NIGHT WEAR SOCKS TO BED active Not Available Not Available No t Available meloxicam 15 mg tablet TAKE 1 TABLET BY MOUTH EVERY DAY NEEDED FOR PAIN active Not Available Not Available No t Available FreeStyle Lancets 28 gauge CHECK SUGARS TWICE A DAY active Not Available Not Available No t Available metoprolol succinate ER 100 mg tablet,ext ended release 24 hr 2018 active Medicatio n ID: [id number] Du ration Value: 30 Brand Name: metoprolo l succinate Send Method: E-Prescri bed Subs Allowed: subs OK Specia l Instructi on: TAKE 1 TABLET BY MOUTH EVERY DAY Medic ationGene ricName: metoprolo l succinate Not Available Not Available Not Available Lantus U-100 Insulin 100 unit/mL subcutaneo us solution INJECT 80 UNITS SUBCUTANE OUSLY AT BEDTIME active Not Available Not Available No t Available Paxil 40 mg tablet active Medicatio n ID: [id number] Br and Name: Paxil Sen d Method: E-Prescri bed Subs Allowed: subs OK Medica tionGener icName: Paxil Not Available Not Available Not Available methotrexa te sodium 2.5 mg tablet TAKE 6 TABLETS ORALLY EVERY WEEK active Not Available Not Available No t Available amlodipine 10 mg tablet TAKE 1 TABLET BY MOUTH EVERY DAY active Not Available Not Available No t Available metformin 1,000 mg tablet TAKE 1 TABLET BY MOUTH TWICE A DAY active Not Available Not Available No t Available gabapentin 300 mg capsule active Medicatio n ID: [id number] Br and Name: gabapenti n Send Method: E-Prescri bed Subs Allowed: subs OK Medica tionGener icName: gabapenti n Not Available Not Available Not Available omeprazole 20 mg capsule,de layed release TAKE 1 CAPSULE BY MOUTH EVERY DAY active Not Available Not Available No t Available aspirin 81 mg chewable tablet ONE MASTIQUE MICHELLE TABLETA POR VIA ORAL TODOS LOS KELLER active Not Available Not Available No t Available folic acid 1 mg tablet 2018 active Medicatio n ID: [id number] Du ration Value: 30 Brand Name: folic acid Send Method: E-Prescri bed Subs Allowed: subs OK Specia l Instructi on: TAKE 5 TABLETS ONCE A DAY ORALLY 30 Medica tionGener icName: folic acid Not Available Not Available Not Available hydrochlor othiazide 25 mg tablet 2018 active Medicatio n ID: [id number] Du ration Value: 30 Brand Name: hydrochlo rothiazid e Send Method: E-Prescri bed Subs Allowed: subs OK Specia l Instructi on: TAKE 1 TABLET BY MOUTH EVERY DAY Medic ationGene ricName: hydrochlo rothiazid e Not Available Not Available Not Available ergocalcif tsering (vitamin D2) 1,250 mcg (50,000 unit) capsule TAKE 1 CAPSULE BY MOUTH ONCE WEEKLY active Not Available Not Available No t Available clobetasol 0.05 % topical ointment APPLY TO AFFECTED AREA TWICE A DAY active Not Available Not Available No t Available insulin lispro (U-100) 100 unit/mL subcutaneo us solution INJECT 40 UNITS UNDER THE SKIN 3 TIMES A DAY active Not Available Not Available No t Available zolpidem 10 mg tablet active Medicatio n ID: [id number] Br and Name: zolpidem Send Method: E-Prescri bed Subs Allowed: subs OK Medica tionGener icName: zolpidem Not Available Not Available Not Available lisinopril 40 mg tablet TAKE 1 TABLET BY MOUTH EVERY DAY active Not Available Not Available No t Available Klonopin 1 mg tablet active Medicatio n ID: [id number] Br and Name: Klonopin Send Method: E-Prescri bed Subs Allowed: subs OK Medica tionGener icName: Klonopin Not Available Not Available Not Available fluticason e propionate 110 mcg/actuat ion HFA aerosol inhaler INHALE 2 PUFFS BY MOUTH TWICE A DAY active Not Available Not Available No t Available naproxen 500 mg tablet TAKE 1 TABLET BY MOUTH TWICE A DAY NEEDED FOR PAIN active Not Available Not Available No t Available Ventolin HFA 90 mcg/actuat ion aerosol inhaler INHALE 2 PUFFS BY MOUTH 4 TIMES A DAY NEEDED active Not Available Not Available No t Available insulin lispro (U-100) 100 unit/mL subcutaneo us pen INJECT 35 UNITS SUBCUTANE OULSY 3 TIMES A DAY BEFORE MEALS active Not Available Not Available No t Available ciclopirox 0.77 % topical cream 2018 active Medicatio n ID: [id number] Du ration Value: 30 Brand Name: ciclopiro x Send Method: E-Prescri bed Subs Allowed: subs OK Specia l Instructi on: APPLY TO AFFECTED AREA TWICE A DAY Medic ationGene ricName: ciclopiro x Not Available Not Available Not Available Humira 40 mg/0.8 mL subcutaneo us syringe kit active Not Available Not Available Not Available Januvia 100 mg tablet 2018 active Medicatio n ID: [id number] Du ration Value: 30 Brand Name: Januvia S end Method: E-Prescri bed Subs Allowed: subs OK Specia l Instructi on: TAKE 1 TABLET BY MOUTH EVERY DAY Medic ationGene ricName: Januvia Not Available Not Available Not Available FreeStyle Lite Strips CHECK SUGARS 3 TIMES A DAY active Not Available Not Available No t Available Humira 20 mg/0.4 mL subcutaneo us syringe kit active Medicatio n ID: [id number] Br and Name: Sandoval Lockhart nd Method: E-Prescri bed Subs Allowed: subs OK Medica tionGener icName: Sandoval Not Available Not Available Not Available BD Insulin Syringe Ultra-Fine 1 mL 31 gauge x 5/16 USE DIRECTED 4 TIMES A DAY active Not Available Not Available No t Available Jardiance 25 mg tablet TAKE 1 TABLET BY MOUTH EVERY DAY IN THE MORNING active Not Available Not Available No t Available Trulicity 1.5 mg/0.5 mL subcutaneo us pen injector INJECT ONE PEN WEEKLY active Not Available Not Available No t Available Arnuity Ellipta 100 mcg/actuat ion powder for inhalation INHALE 1 PUFF BY MOUTH EVERY DAY active Not Available Not Available No t Available BD Kandice 2nd Gen Pen Needle 32 gauge x 5/32 USE TO INJECT INSULIN 4 TIMES DAILY active Not Available Not Available No t Available Trulicity 3 mg/0.5 mL subcutaneo us pen injector INJECT 1 SYRINGE ONCE WEEKLY active Not Available Not Available No t Available Vitals Date Recorded Body height Body mass index (BMI) Body weight Provider Name and Address Organization Details Last Updated DateTime 04/10/2024 157.48 cm 36.8 kg/m2 40358.07 g Blayne Martinez [facility] 04/10/2024 11:04:14 Date Recorded Body height Body mass index (BMI) Body weight Provider Name and Address Organization Details Last Updated DateTime 05/02/2024 157.48 cm 36.8 kg/m2 69553.07 g Jhon Acosta [facility] 05/02/2024 10:41:44 Social History None recorded. Functional Status None recorded. Mental Status None recorded. Family History Nothing Reported. Medical History Condition Response Diabetes Y Migraines Y Hypertension Y Asthma Y High Cholesterol Y Gynecological HistoryNo gynecological history recorded. Obstetrics History GPAL:G 0 P 0 0 0 0 Past Encounters Encounter ID Performer Location Encounter Start Date Encounter Closed Date Diagnosis/Indication Diagnosis SNOMED-CT Code Diagnosis ICD10 Code Diagnosis Note [id number] ANA MARÍA VAZQUEZ MD [facility] [address] [address] 04/10/2024 10:59:49 04/10/2024 11:20:03 Bilateral earache 476716937 H92.03 TMJ instructio ns given Impacted c erumen of bilateral ears 6938793960 495637 H61.23 Type 2 nelson betes mellitus 31064968 E11.9 [id number] ANA MARÍA VAZQUEZ MD [facility] [address] [address] 05/02/2024 10:39:35 05/02/2024 11:43:37 Bilateral earache 361862466 H92.03 05-02-2024 udiologica l evaluation results: Right ear: {{Normal* Normal through 2 kHz Mild M oderate Mo derately-s evere Kimberly re Profoun d}} {{hearing* sloping to a mild slopi ng to a moderate s loping to moderately severe slo ping to severe slo ping to profound f lat high frequency low frequency mid frequency cookie bite menendez curve}} {{with* se nsorineura l hearing loss with condu ctive hearing loss with mixed hearing loss with}} {{excellen t* good fa ir poor no measurable }} word recognitio n. Left ear: {{Normal* Normal through 2 kHz Mild M oderate Mo derately-s evere Kimberly re Profoun d}} {{hearing* sloping to a mild slopi ng to a moderate s loping to moderately severe slo ping to severe slo ping to profound f lat high frequency low frequency mid frequency cookie bite menendez curve}} {{with* se nsorineura l hearing loss with condu ctive hearing loss with mixed hearing loss with}} {{excellen t* good fa ir poor no measurable }} word recognitio n. Tympanomet ry: Right Ear:{{Type A* Type As Type Ad Type C Type C, shallow & rounded Ty pe B Type B with large volume Cou ld not maintain a hermetic seal}} Left Ear:{{Type A Type As Type Ad* Type C Type C, shallow & rounded Ty pe B Type B with large volume Cou ld not maintain a hermetic seal}} Health Concerns Section Related Observation LastModified by Organization Detai ls LastModified Time None Recorded Concern Status LastModified by Organization Details LastModified Time None Recorded Advance Directives Directive None Recorded Payers Encounter Date Sequence Insurance Name Policy Number Policy Rapp Covered Member ID Rapp Member ID Guarantor Name 04/10/2024 1 [place] [facility] Roxane Blackwell [id number] Roxane Blackwell 05/02/2024 1 [place] [facility] Roxane Blackwell [id number] Roxane Blackwell Notes Date Note Type Note Provider Name and Address Organization Details Recorded Time 04/10/2024 text/html Patient seen wit h her son for an opinion regarding discomfort in her ear canals bilaterally. She has a feeling that she needs to use Q-tips to remove debris. She denies eating, drinking or swallowing difficulty no voice change. She has a history of diabetes and was seen in 2019 for otitis externa. ANA MARÍA YEPEZ MD 100 [facility],[address], [address], [facility] 04/10/2024 11:17:18 05/02/2024 text/html 59 year old silver thomas presents to the office for follow up of her right greater than left ear pain. She reports significant improvement in the pain since the last office visit. She has been doing vinegar drops and TMJ precautions. ANA MARÍA YEPEZ MD [address] [facility],[place] [address], [place], [address], [facility] 05/02/2024 13:25:59 OBGyn Episode No OBEpisode recorded.
== END 2024-10-09 14:17 | disposition home or self-care (01) ==
PROVIDERS: PCP Internal Medicine; Visit Provider Nurse Practitioner Family
DX: Z01.818 Encounter for other preprocedural examination (principal); Z12.11 Encounter for screening for malignant neoplasm of colon; J45.40 Moderate persistent asthma, uncomplicated
CPT/HCPCS: 99202

== ENCOUNTER → 2024-10-09 13:01 | Outpatient (BNVA) | payer MEDICAID, SELFPAY | PROVIDERS: PCP Internal Medicine; Visit Provider Nurse Practitioner Family | DX: Z01.818 Encounter for other preprocedural examination (principal); J45.40 Moderate persistent asthma, uncomplicated | CPT/HCPCS: 99212 ==

== ENCOUNTER 2024-12-02 13:29 | Outpatient (REF) | payer MEDICAID, SELFPAY ==
--- OUTSIDE RECORDS SUMMARY | 2024-12-02 13:34 | XMS_ITS | Data Portability ---
Author Organization [place] - [facility], Allergy Address [address] [address] Care Team Providers Care Lath Tier Name Role Phone DARYA ALONZO Primary Care [...] audio gram No observ ation record ed. Not Available 04/15 12:04:27 Result Notes None recorded. Problems Name Problem SNOMED Code Status Onset Date Resolution Date Notes Provider Name and Address Organization Details Recorded Time Disorder of right Eustachia n tube 74729688659 Active 2019 Other specified disorders of Eustachia n tube, right ear; Note: Date Diagnosed : 08/30/2019 1:23 PM (H69.81) Not Available [facility] 4 02:15:03 Impacted cerumen in left ear 70006599776 Active 2019 Impacted cerumen, left ear; Note: Date Diagnosed : 08/30/2019 1:23 PM (H61.22) Not Available [facility] 4 02:15:35 Diffuse otitis externa 54361124 Active 2019 Diffuse otitis externa, right ear; Note: Date Diagnosed : 09/02/2019 10:58 AM (H60.311) Not Available [facility] 4 02:15:17 Bilateral earache 225353891 Active 2023 ANA MARÍA VAZQUEZ MD [address] [place] [address],[place] [address], [place], [address] , [place] - [facility] 4 11:15:41 Impacted cerumen of bilateral ears 56982262702 65827 Active 2023 ANA MARÍA VAZQUEZ MD [address] [place] [address],[place] [address], [place], [address] , [place] [facility] [place] 4 11:15:47 Type 2 diabetes mellitus 04817962 Active 2023 ANA MARÍA VAZQUEZ MD [address] [place] [address],[place] [address], [place], [address] , [place] [facility] 4 11:16:51 Problem Notes None recorded. Procedures Surgical History Date Name Laterality Status Provider Name and Address Organization Details Recorded Time 05/02/2024 Air & Speech Audio with Tymps (53604, 76247 & 89237) completed MARLY ROLLINS MA, [facility] [address] [place] [address],[place] [address], [place], [address], [place] [facility] 05/02/2024 11:20:41 Imaging Results Imaging Date Name Status LastModified by Organiz [facility] Details LastModified Time 05/03/2024 audiogram completed Information n ot available 05/03/2024 12:04:27 Procedure [...] mg tablet 2018 active Medicatio n ID: [id number] Du ration Value: 30 Brand Name: atorvasta [...] 24 hr 2018 active Medicatio n ID: [id number] Du ration Value: 30 Brand Name: metoprolo [...] 40 mg tablet active Medicatio n ID: [id number] Br and Name: Paxil Sen d Method: [...] 300 mg capsule active Medicatio n ID: [id number] Br and Name: gabapenti n Send Method: [...] mg tablet 2018 active Medicatio n ID: [id number] Du ration Value: 30 Brand Name: folic acid Send Method: E-Prescri bed Subs Allowed: subs OK Specia l Instructi on: TAKE 5 TABLETS ONCE A DAY ORALLY 30 Medica tionGener icName: folic acid Not Available Not Available Not Available hydrochlor othiazide 25 mg tablet 2018 active Medicatio n ID: [id number] Du ration Value: 30 Brand Name: hydrochlo [...] 10 mg tablet active Medicatio n ID: [id number] Br and Name: zolpidem Send Method: E-Prescri bed Subs Allowed: subs OK Medica tionGener icName: zolpidem Not Available Not Available Not Available lisinopril 40 mg tablet TAKE 1 TABLET BY MOUTH EVERY DAY active Not Available Not Available No t Available Klonopin 1 mg tablet active Medicatio n ID: [id number] Br and Name: Klonopin Send Method: E-Prescri [...] topical cream 2018 active Medicatio n ID: [id number] Du ration Value: 30 Brand Name: ciclopiro x Send Method: E-Prescri bed Subs Allowed: subs OK Specia l Instructi on: APPLY TO AFFECTED AREA TWICE A DAY Medic ationGene ricName: ciclopiro x Not Available Not Available Not Available Humira 40 mg/0.8 mL subcutaneo us syringe kit active Not Available Not Available Not Available Januvia 100 mg tablet 2018 active Medicatio n ID: [id number] Du ration Value: 30 Brand Name: Januvia [...] us syringe kit active Medicatio n ID: [id number] Br and Name: Sandoval Lockhart nd Method: [...] Updated DateTime 04/10/2024 157.48 cm 36.8 kg/m2 26421.07 g Blayne Martinez [facility] 04/10/2024 11:04:14 Date Recorded Body height Body mass index (BMI) Body weight Provider Name and Address Organization Details Last Updated DateTime 05/02/2024 157.48 cm 36.8 kg/m2 87933.07 g Jhon Acosta [facility] 05/02/2024 10:41:44 Social History None recorded. Functional Status None recorded. Mental Status None recorded. Family History Nothing Reported. Medical History Condition Response Diabetes Y Migraines Y Asthma Y High Cholesterol Y Hypertension Y Gynecological HistoryNo gynecological history recorded. Obstetrics History GPAL:G 0 P 0 0 0 0 Past Encounters Encounter ID Performer Location Encounter Start Date Encounter Closed Date Diagnosis/Indication Diagnosis SNOMED-CT Code Diagnosis ICD10 Code Diagnosis Note [id number] ANA MARÍA VAZQUEZ MD [facility] [address] [address] 04/10/2024 10:59:49 04/10/2024 11:20:03 Bilateral earache 535475788 H92.03 TMJ instructio ns given Impacted c erumen of bilateral ears 6702749847 453577 H61.23 Type 2 nelson betes mellitus 97762834 E11.9 [id number] ANA MARÍA VAZQUEZ MD [facility] [address] [address] 05/02/2024 10:39:35 05/02/2024 11:43:37 Bilateral earache 790378063 H92.03 05-02-2024 udiologica l evaluation results: Right [...] Member ID Guarantor Name 04/10/2024 1 [place] [facility] Roxane Blackwell [id number] Roxane Blackwell 05/02/2024 1 [place] [facility] Roxane Blackwell [id number] Roxane Blackwell Notes Date Note Type Note [...] otitis externa. ANA MARÍA YEPEZ MD 100 [facility],[address], [address], [facility] 04/10/2024 11:17:18 05/02/2024 text/html 59 year old silver thomas presents to the office for follow up of her right greater than left ear pain. She reports significant improvement in the pain since the last office visit. She has been doing vinegar drops and TMJ precautions. ANA MARÍA YEPEZ MD 100 [facility],[place] [address], [place], [address], [facility] 05/02/2024 13:25:59 OBGyn Episode No OBEpisode recorded.
[2024-12-02 13:45] LABS: MANUAL DIFF FLAG NO
[2024-12-02 14:25] LABS: Estimated Average Glucose 255 mg/dL; Hemoglobin A1C 312.9429 umol/L; Hemoglobin A1c % 10.5 % (<6.0); Total Hemoglobin (HGBA1C) 3444.8805 umol/L
[2024-12-02 14:32] LABS: Basophils Percent Auto 0.6 % (0-2); Eosinophils Absolute Auto 0.1 X10*3/uL (0.0-0.4); Eosinophils Percent Auto 1.9 % (0-4); Hematocrit 39.4 % (37.0-47.0); Hemoglobin 12.9 g/dl (12.0-16.0); Imm Gran Abs Auto 0.02 X10*3/uL (0.00-0.03); Imm Gran Pct Auto 0.3 % (0.0-0.4); Lymphocytes Absolute Auto 1.8 X10*3/uL (1.2-4.9); Lymphocytes Percent Auto 28.6 % (20-40); Mean Corpuscular HGB Conc 32.7 g/dl (31.0-35.0); Mean Corpuscular Hemoglobin 31.8 pg (27.0-33.0); Mean Platelet Volume 11.1 fL (9.4-12.3); Monocytes Absolute Auto 0.4 X10*3/uL (0.1-1.2); Monocytes Percent Auto 6.5 % (2-11); Neutrophils Absolute Auto 3.9 x10*3/uL (2.0-8.3); Neutrophils Percent Auto 62.1 % (45-73); Platelet Count 215 X10*3/uL (160-400); Red Blood Count 4.06 X10*6/uL (4.20-5.50); Red Cell Distribution Width 12.7 % (11.0-16.0); White Blood Count 6.3 X10*3/uL (4.8-10.8)
[2024-12-02 14:36] LABS: C Reactive Protein 0.84 mg/dL (< or = 0.50)
[2024-12-02 14:49] LABS: Alanine Aminotransferase 14 U/L (0-31); Albumin Level 3.7 g/dL (3.5-5.0); Alkaline Phosphatase 82 U/L (39-117); Anion Gap 12 (12-20); Aspartate Amino Transferase 19 U/L (5-31); Bilirubin Total 0.5 mg/dL (0.0-1.0); Blood Urea Nitrogen 12 mg/dL (9-16); Calcium 9.1 mg/dL (8.4-10.2); Carbon Dioxide 31 mmol/L (22-29); Chloride 100 mmol/L (96-108); Estimated Glomerular Filt Rate > 60; Glucose Random 342 mg/dL (60-115); Potassium 4.4 mmol/L (3.3-5.1); Sodium 139 mmol/L (135-145); Total Protein 7.6 g/dL (6.5-8.0)
[2024-12-02 15:08] LABS: Erythrocyte Sedimentation Rate 34 MM/HR (0-20)
== END 2024-12-02 13:30 | disposition home or self-care (01) ==
LOC: HO.LAB 13:29
PROVIDERS: Absent Provider Student in an Organized Health Care Education/Training Program; PCP Internal Medicine; Visit Provider Internal Medicine
DX: E11.65 Type 2 diabetes mellitus with hyperglycemia (principal); E55.9 Vitamin D deficiency, unspecified; E78.00 Pure hypercholesterolemia, unspecified; I10 Essential (primary) hypertension; L40.50 Arthropathic psoriasis, unspecified; Z79.899 Other long term (current) drug therapy
CPT/HCPCS: 36415; 80053; 83036; 85025; 85652; 86140; 87086

== ENCOUNTER 2024-12-12 13:28 | Outpatient (AMB) | payer MEDICAID, SELFPAY ==
--- NOTE | 2024-12-12 13:48 | MHC.OFFVIS ---
Vital Signs 12/12/24 13:49 Height 5 ft 2 in Weight 213 lb 10.047 oz BMI 39.1 BP 128/72 Blood Pressure Location Lt brachial Position Sitting Pulse 95 Pulse Source Pulse Oximeter Pulse Oximetry (%) 98 Oxygen Delivery Method Room Air Intake Visit Reasons: PsA Intake Note: Patient presents today for follow up on PSA, she was last seen in the office on 02/20/[address] Gutierrez. Patient would like refill on her Methotrexate, and she would like to talk about Tremfya today. Lead Instructor/Flight Attendant Services: Lead Instructor/Flight Attendant Offered & Declined Allergies No Known Allergies [No Known Allergies*] Allergy (Verified 12/12/24 13:54) Medication List - Last Reconciled 12/12/24 by Aicha Harding MD albuterol sulfate 90 mcg/actuation (ProAir HFA) 2 puffs inhalation Q6H PRN amlodipine 10 mg PO DAILY apremilast (Otezla Starter) 1 ea PO PER PKG DIR apremilast 30 mg PO BID atorvastatin 80 mg PO DAILY beclomethasone dipropionate 80 mcg/actuation (Qvar RediHaler) 1 inh inhalation BID bisacodyl (Dulcolax (bisacodyl)) 20 mg (4 x 5 mg) PO ONCE 1 day blood sugar diagnostic (FreeStyle Lite Strips) As directed ceramide 1,3,0-RH-mvqj-hyalur ER (CeraVe PM lotion,extended release) 1 appl topical BEDTIME clonazepam (Klonopin) 1 mg PO BID cyclobenzaprine 10 mg PO TID PRN diclofenac sodium 1% 2 grams transdermal BID PRN dulaglutide (Trulicity) mg subcut QWEEK empagliflozin (Jardiance) 25 mg PO QAM ergocalciferol (vitamin D2) 1,250 mcg PO QWEEK folic acid 1 mg PO DAILY gabapentin 300 mg PO TID glimepiride 2 mg PO DAILY hydrochlorothiazide 25 mg PO DAILY insulin glargine (Lantus U-100 Insulin) 80 units subcut QPM insulin lispro 35 units subcut TID lancets (FreeStyle Lancets) As directed lisinopril 40 mg PO DAILY metformin 1,000 mg PO BID methotrexate sodium 15 mg (6 x 2.5 mg) PO QWEEK metoprolol succinate ER 100 mg PO DAILY naproxen 500 mg PO BID PRN omeprazole 20 mg PO DAILY paroxetine HCl (Paxil) 40 mg PO DAILY pen needle, diabetic (BD Kandice 2nd Gen Pen Needle) As directed polyethylene glycol 3350 (Miralax) 238 grams PO ONCE Taltz Autoinjector (ixekizumab) 80 mg subcut Q4W NS triamcinolone acetonide 0.1% 1 appl topical BID zolpidem 10 mg PO BEDTIME PRN HPI Comments Details: This is a 59-year-old female with hypertension, hyperlipidemia, diabetes, GERD, polyarticular osteoarthritis and psoriasis complicated by psoriatic arthritis here today for follow up Interval History: Patient last seen 02/20/[address] Kaufman. She was following up for her psoriasis and psoriatic arthritis on methotrexate 6 tabs weekly, folic acid 1 mg daily Taltz. She was doing fairly well with improvement in her psoriatic rashes. Rashes continue to improve but still persist in the scalp, face, upper back and extensor surface of elbows Joint pain has improved overall but complaining of bilateral knee pain, worse in the evenings Rheumatologic History: PsO/PsA Humira: 02/2017 advanced to weekly 06/2023 ineffective for skin Methotrexate: 2017-present Taltz 12/2023 Current Rheumatology Medication(s): Methotrexate 15mg weekly PO Folic acid 1 mg daily Taltz 80mg every 4 weeks PFSH Medical History Psoriasis Psoriatic arthritis Surgical History Hx of section Family History Mother Diabetes HTN (hypertension) Social History Alcohol intake: current Alcohol intake frequency: does not drink Patient Tobacco Use Status: Never used Tobacco e-Cigarette/Vaping Use: Never Used Review of Systems Const Details: Review of Systems Constitutional: Denies fever, chills, weight loss ENT: Denies vision changes, eye pain or eye redness, dental caries, dry mouth GI: Denies nausea, vomiting, diarrhea, abdominal pain, change in BM Pulm: Denies SOB, CALLE, hemoptysis, wheezing Cards: Denies chest pain, palpitations Skin: Denies Raynaud's, nail changes, photosensitivity, 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 Well appearing and in no apparent painful distress HEENT Conjunctiva and sclera clear. ?Pupils equal round and reactive to light. ?No lymphadenopathy. ? CHEST/RESPIRATORY SYSTEM Normal respiratory effort and able to speak in complete sentences. ?Clear to auscultation bilaterally. ?No crackles, rales, rhonchi, wheezes heard. CARDIAC SYSTEM Regular rate and rhythm. ?S1 and S2 heard no murmurs. ?Radial pulses intact bilaterally MSK Hands: ?Able to make a fist. No synovitis noted to the MCPs, PIPs or DIPs. ?No tenderness to palpation of these joints. No deformities noted. ?Prominent herbedens nodes Wrists: ?Full range of motion at the wrists without pain. ?No tenderness to palpation or synovitis noted to the wrists. Elbows: Full range of motion without pain. No tenderness, weakness, swelling, increased warmth or erythema. Shoulders: Full range of active range of motion without pain. No tenderness, weakness, swelling, increased warmth or erythema. Knees: ?Full range of motion. ?No tenderness, swelling, increased warmth or erythema.?Bilateral crepitations Ankles: Full range of motion. ?No tenderness, swelling, increased warmth or erythema.? Feet: ?Negative squeeze test. ?No tenderness to palpation or swelling of the MTPs. Tender points:?No tenderness to palpation of the bilateral trapezius, supraspinatus, greater trochanters, anterior costochondral junctions, bilateral gluteal areas, bilateral suboccipital muscle insertions SKIN Results Reviewed Results Reviewed: Laboratory Tests 08/26/24 12/02/24 13:49 13:38 WBC 6.3 RBC 4.06 L Hgb 12.9 Hct 39.4 Plt Count 215 ESR 34 H Sodium 139 Potassium 4.4 Chloride 100 Carbon Dioxide 31 H BUN 12 Creatinine 0.79 Calcium 9.1 D Total Bilirubin 0.5 AST 19 ALT 14 Alkaline Phosphatase 82 C-Reactive Protein 0.75 H 0.84 H Total Protein 7.6 Albumin 3.7 Infectious serologies 04/05/23 14:19 Hepatitis A IgM Ab Nonreactive Hep Bs Antigen Negative Hep Bs Antibody NONREACTIVE Hep B Core Total Ab Nonreactive Hepatitis C Ab (EIA) Nonreactive TB Test (T-Spot) Com Negative Assessment & Plan Assessment & Plan (1) Psoriatic arthritis: Comment: Humira: 02/2017 advanced to weekly 06/2023 ineffective for skin Methotrexate: 2016-present Taltz 12/2023 Code(s): L40.50 - Arthropathic psoriasis, unspecified Category: Medical Plan: #PsO with PsA Patient is a 59-year-old female with psoriasis complicated by psoriatic arthritis here today for follow up. Has had improvement of her psoriatic rash and her joints with Taltz however still has about 18 to 25% body surface area affected by psoriatic plaques. And also still has a moderate psoriatic arthritis. We will add Otezla to her medication Plan - Start Otezla - Continue Taltz 80mg SC - Methotrexate 15mg weekly - Folic acid 1mg daily - RTC 4 months - Labs before visit: CBC, CMP, ESR, CRP, hepatitis panel, T spot (2) Primary osteoarthritis of both knees: Code(s): M17.0 - Bilateral primary osteoarthritis of knee Plan: #Bilateral Knee OA Patient with bilateral knee pain likely related to her bilateral knee osteoarthritis. She had pretty significant arthritic changes about 4 years ago. We will repeat x-rays today and send to ortho for evaluation for replacement. If replacement is not viable we can do injections. 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 Limit alcohol and avoid Bactrim ? Monitoring: ?CBC, BMP, LFTs every 3-4 months and hepatitis serologies as needed (4) Long-term current use of ixekizumab: Code(s): Z79.620 - MCC (current) use of immunosuppressive biologic Plan: #MCC treatment with IL 17 inhibitors (Anirudh) Risks and benefits of IL 17 inhibitors discussed with the patient. ?Risks include infections, injection site reactions, activation of inflammatory bowel disease. Benefits include improved disease activity. Discussed with patient that if she is feeling sick or having flu-like symptoms she is to hold the medication that week and resolved the following week. (5) Long-term current use of apremilast: Code(s): Z79.61 - diesel mechanic helper (current) use of immunomodulator Plan: #Long-term Current Use of Apremilast Risks and benefits of Apremilast in the management of psoriatic arthritis and psoriasis discussed with the patient. Benefits include decreased joint pain and morbidity Risks include GI upset including diarrhea, hypersensitivity reactions, significant weight loss, symptoms of depression Plan I spent 30 minutes reviewing the record and labs, taking a history, examining the patient, discussing the treatment plan, ordering diagnostic work up and documenting in the medical record Orders: Orders XR knee LT 3V Today M17.0 - Bilateral primary osteoarthritis of knee Complete Blood Count Auto Diff 4 Months L40.50 - Arthropathic psoriasis, unspecified Erythrocyte Sedimentation Rate 4 Months L40.50 - Arthropathic psoriasis, unspecified Hepatitis A,B,C Profile 4 Months L40.50 - Arthropathic psoriasis, unspecified T Spot TB 4 Months L40.50 - Arthropathic psoriasis, unspecified XR knee RT 3V Today M17.0 - Bilateral primary osteoarthritis of knee Comprehensive Met. Panel 4 Months L40.50 - Arthropathic psoriasis, unspecified C Reactive Protein 4 Months L40.50 - Arthropathic psoriasis, unspecified Hemoglobin A1c 4 Months L40.50 - Arthropathic psoriasis, unspecified Referrals Orthopedics Referral M17.0 - Bilateral primary osteoarthritis of knee Medications: New apremilast (Otezla Starter) 1 ea PO PER PKG DIR 55 ea 0RF L40.50 - Arthropathic psoriasis, unspecified apremilast To start after the starter pack 30 mg PO BID 180 tabs 1RF L40.9 - Psoriasis, unspecified Refilled folic acid 1 mg PO DAILY 90 tabs 1RF L40.50 - Arthropathic psoriasis, unspecified methotrexate sodium 15 mg (6 x 2.5 mg) PO QWEEK 72 tabs 1RF L40.50 - Arthropathic psoriasis, unspecified Taltz Autoinjector (ixekizumab) 80 mg subcut Q4W 1 mL 4RF NS L40.50 - Arthropathic psoriasis, unspecified Coding Level of Care Code Est Pt Level 4 (14116) Complex EM visit Add On G2211 Diagnoses Psoriatic arthritis L40.50 Primary osteoarthritis of both knees M17.0 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
[2024-12-12 13:49] VITALS: BP 128/72; PULSE 95; O2SAT 98; BMI 39.1
--- OUTSIDE RECORDS SUMMARY | 2024-12-12 15:50 | XMS_ITS | Data Portability ---
Author Organization [place] - [facility], Allergy Address [address] [address] Care Team Providers Care Fisher Terrapin Name Role Phone DARYA ALONZO Primary Care [...] audio gram No observ ation record ed. [email or web address] Not Available 04/15 12:04:27 Result Notes None recorded. Problems Name Problem SNOMED Code Status Onset Date Resolution Date Notes Provider Name and Address Organization Details Recorded Time Disorder of right Eustachia n tube 13575172789 Active 2019 Other specified disorders of Eustachia n tube, right ear; Note: Date Diagnosed : 08/30/2019 1:23 PM (H69.81) Not Available Counts include 234 beds at the [facility] 4 02:15:03 Impacted cerumen in left ear 63251030519 Active 2019 Impacted cerumen, left ear; Note: Date Diagnosed : 08/30/2019 1:23 PM (H61.22) Not Available Counts include 234 beds at the [facility] 4 02:15:35 Diffuse otitis externa 61575944 Active 2019 Diffuse otitis externa, right ear; Note: Date Diagnosed : 09/02/2019 10:58 AM (H60.311) Not Available Counts include 234 beds at the [facility] 4 02:15:17 Bilateral earache 225607150 Active 2023 ANA MARÍA VAZQUEZ MD [address] [place] [address],[place] [address], [place], [address] , [place] - [facility] 4 11:15:41 Impacted cerumen of bilateral ears 70512793484 27118 Active 2023 ANA MARÍA VAZQUEZ MD [address] [place] [address],[place] [address], [place], [address] , [place] - [facility] 4 11:15:47 Type 2 diabetes mellitus 17516434 Active 2023 ANA MARÍA VAZQUEZ MD [address] [place] [address],[place] [address], [place], [address] , [place] [facility] 4 11:16:51 Problem Notes None recorded. Procedures Surgical History Date Name Laterality Status Provider Name and Address Organization Details Recorded Time 05/02/2024 Air & Speech Audio with Tymps - 10731, 45860 & 90334 completed MARLY ROLLINS [place], [facility] [address] [place] [address],[place] [address], [place], [address], [place] [facility] 05/02/2024 11:20:41 Imaging Results Imaging Date Name Status LastModified by [facility] Details LastModified Time 05/03/2024 audiogram completed [email or web address] Information n ot available 05/03/2024 12:04:27 Procedure [...] mg tablet 2018 active Medicatio n ID: [id number] Du ration Value: 30 Brand Name: atorvasta [...] 24 hr 2018 active Medicatio n ID: [id number] Du ration Value: 30 Brand Name: metoprolo [...] 40 mg tablet active Medicatio n ID: [id number] Br and Name: Paxil Sen d Method: [...] 300 mg capsule active Medicatio n ID: [id number] Br and Name: gabapenti n Send Method: [...] mg tablet 2018 active Medicatio n ID: [id number] Du ration Value: 30 Brand Name: folic acid Send Method: E-Prescri bed Subs Allowed: subs OK Specia l Instructi on: TAKE 5 TABLETS ONCE A DAY ORALLY 30 Medica tionGener icName: folic acid Not Available Not Available Not Available hydrochlor othiazide 25 mg tablet 2018 active Medicatio n ID: [id number] Du ration Value: 30 Brand Name: hydrochlo [...] 10 mg tablet active Medicatio n ID: [id number] Br and Name: zolpidem Send Method: E-Prescri bed Subs Allowed: subs OK Medica tionGener icName: zolpidem Not Available Not Available Not Available lisinopril 40 mg tablet TAKE 1 TABLET BY MOUTH EVERY DAY active Not Available Not Available No t Available Klonopin 1 mg tablet active Medicatio n ID: [id number] Br and Name: Klonopin Send Method: E-Prescri [...] topical cream 2018 active Medicatio n ID: [id number] Du ration Value: 30 Brand Name: ciclopiro x Send Method: E-Prescri bed Subs Allowed: subs OK Specia l Instructi on: APPLY TO AFFECTED AREA TWICE A DAY Medic ationGene ricName: ciclopiro x Not Available Not Available Not Available Humira 40 mg/0.8 mL subcutaneo us syringe kit active Not Available Not Available Not Available Januvia 100 mg tablet 2018 active Medicatio n ID: [id number] Du ration Value: 30 Brand Name: Januvia [...] us syringe kit active Medicatio n ID: [id number] Br and Name: Sandoval Lockhart nd Method: E-Prescri bed Subs Allowed: subs OK Medica tionGener icName: Humira Not Available Not Available Not Available BD [...] Updated DateTime 04/10/2024 157.48 cm 36.8 kg/m2 40798.07 g Blayne Martinez [facility] 04/10/2024 11:04:14 Date Recorded Body height Body mass index (BMI) Body weight Provider Name and Address Organization Details Last Updated DateTime 05/02/2024 157.48 cm 36.8 kg/m2 71650.07 g Jhon Acosta [facility] 05/02/2024 10:41:44 Social History None recorded. Functional Status None recorded. Mental Status None recorded. Family History Nothing Reported. Medical History Condition Response Migraines Y Diabetes Y Asthma Y High Cholesterol Y Hypertension Y Gynecological HistoryNo gynecological history recorded. Obstetrics History GPAL:G 0 P 0 0 0 0 Past Encounters Encounter ID Performer Location Encounter Start Date Encounter Closed Date Diagnosis/Indication Diagnosis SNOMED-CT Code Diagnosis ICD10 Code Diagnosis Note [id number] ANA MARÍA VAZQUEZ MD [facility] [address] [address] 04/10/2024 10:59:49 04/10/2024 11:20:03 Bilateral earache 115925312 H92.03 TMJ instructio ns given Impacted c erumen of bilateral ears 3712148516 330490 H61.23 Type 2 nelson betes mellitus 70750815 E11.9 [id number] SCOTT WALLER PA-C [facility] [address] [address] 05/02/2024 10:39:35 05/02/2024 11:43:37 Bilateral earache 823314732 H92.03 05-02-2024 udiologica l evaluation results: Right [...] Member ID Guarantor Name 04/10/2024 1 [place] [facility] Roxane Blackwell [id number] Roxane Blackwell 05/02/2024 1 [place] [facility] Roxane Blackwell [id number] Roxane Blackwell Notes Date Note Type Note [...] for otitis externa. ANA MARÍA YEPEZ MD [address] [place] [address],[address], [address], [place] - [facility] 04/10/2024 11:17:18 05/02/2024 text/html 59 year old silver thomas presents to the office for follow up of her right greater than left ear pain. She reports significant improvement in the pain since the last office visit. She has been doing vinegar drops and TMJ precautions. ANA MARÍA YEPEZ MD [address] [place] [address],[place] [address], [place], [address], [facility] 05/02/2024 13:25:59 OBGyn Episode No OBEpisode recorded.
== END 2024-12-12 14:33 | disposition home or self-care (01) ==
LOC: HO.RHE 13:29
PROVIDERS: PCP Internal Medicine; Visit Provider Student in an Organized Health Care Education/Training Program
DX: L40.50 Arthropathic psoriasis, unspecified (principal); M17.0 Bilateral primary osteoarthritis of knee; Z79.899 Other long term (current) drug therapy; Z79.620 Long term (current) use of immunosuppressive biologic; Z79.61 Long term (current) use of immunomodulator
CPT/HCPCS: 99214

== ENCOUNTER → 2024-12-12 13:28 | Outpatient (BNVA) | payer MEDICAID, SELFPAY | PROVIDERS: PCP Internal Medicine; Visit Provider Student in an Organized Health Care Education/Training Program | DX: L40.50 Arthropathic psoriasis, unspecified (principal); M17.0 Bilateral primary osteoarthritis of knee; Z79.899 Other long term (current) drug therapy; Z79.620 Long term (current) use of immunosuppressive biologic; Z79.61 Long term (current) use of immunomodulator | CPT/HCPCS: 99212 ==

== ENCOUNTER 2025-01-28 14:20 | Outpatient (REF) | payer MEDICAID, SELFPAY ==
--- OUTSIDE RECORDS SUMMARY | 2025-01-28 16:36 | XMS_ITS | Data Portability ---
Author Organization [place] - [facility], All[facility] Address [address] [address] Care Team Providers Care Radiography Technician Name Role Phone DARYA ALONZO Primary Care Provider [phone] Assessment Encounter Date Assessment Date Assessment LastModified [...] Time Disorder of right Eustachia n tube 80023737456 Active 2019 Other specified disorders of Eustachia n tube, right ear; Note: Date Diagnosed : 08/30/2019 1:23 PM (H69.81) Not Available [facility] 4 02:15:03 Impacted cerumen in left ear 69432221700 Active 2019 Impacted cerumen, left ear; Note: Date Diagnosed : 08/30/2019 1:23 PM (H61.22) Not Available [facility] 4 02:15:35 Diffuse otitis externa 20966646 Active 2019 Diffuse otitis externa, right ear; Note: Date Diagnosed : 09/02/2019 10:58 AM (H60.311) Not Available [facility] 4 02:15:17 Bilateral earache 468645999 Active 2023 ANA MARÍA VAZQUEZ MD [address] [place] [address],[place] [address], [place], [address] , [place] - [facility] 4 11:15:41 Impacted cerumen of bilateral ears 67294114662 04507 Active 2023 ANA MARÍA VAZQUEZ MD [address] [place] [address],[place] [address], [place], [address] , [place] [facility] 4 11:15:47 Type 2 diabetes mellitus 68190368 Active 2023 ANA MARÍA VAZQUEZ MD [address] [place] [address],[place] [address], [place], [address] , [place] [facility] 4 11:16:51 Problem Notes None recorded. Procedures Surgical History Date Name Laterality Status Provider Name and Address Organization Details Recorded Time 05/02/2024 Air & Speech Audio with Tymps - 51575, 39519 & 77069 completed MARLY ROLLINS [place], [facility] [address] [place] [address],[place] [address], [place], [address], [place] [facility] 05/02/2024 11:20:41 Imaging Results None recorded. Procedure Notes None recorded. Medical Equipment None [...] mg tablet 2018 active Medicatio n ID: [id number] Du ration Value: 30 Brand Name: atorvasta [...] 24 hr 2018 active Medicatio n ID: [id number] Du ration Value: 30 Brand Name: metoprolo [...] 40 mg tablet active Medicatio n ID: [id number] Br and Name: Paxil Sen d Method: [...] 300 mg capsule active Medicatio n ID: [id number] Br and Name: gabapenti n Send Method: [...] mg tablet 2018 active Medicatio n ID: [id number] Du ration Value: 30 Brand Name: folic acid Send Method: E-Prescri bed Subs Allowed: subs OK Specia l Instructi on: TAKE 5 TABLETS ONCE A DAY ORALLY 30 Medica tionGener icName: folic acid Not Available Not Available Not Available hydrochlor othiazide 25 mg tablet 2018 active Medicatio n ID: [id number] Du ration Value: 30 Brand Name: kimberhlo rothiazid e Send Method: E-Prescri bed Subs Allowed: subs OK Specia l Instructi on: TAKE 1 TABLET BY MOUTH EVERY DAY Medic ationGene ricName: kimberhlo rothiazid e Not Available Not Available Not [...] 10 mg tablet active Medicatio n ID: [id number] Br and Name: zolpidem Send Method: E-Prescri bed Subs Allowed: subs OK Medica tionGener icName: zolpidem Not Available Not Available Not Available lisinopril 40 mg tablet TAKE 1 TABLET BY MOUTH EVERY DAY active Not Available Not Available No t Available Klonopin 1 mg tablet active Medicatio n ID: [id number] Br and Name: Klonopin Send Method: E-Prescri [...] topical cream 2018 active Medicatio n ID: [id number] Du ration Value: 30 Brand Name: ciclopiro x Send Method: E-Prescri bed Subs Allowed: subs OK Specia l Instructi on: APPLY TO AFFECTED AREA TWICE A DAY Medic ationGene ricName: ciclopiro x Not Available Not Available Not Available Humira 40 mg/0.8 mL subcutaneo us syringe kit active Not Available Not Available Not Available Januvia 100 mg tablet 2018 active Medicatio n ID: [id number] Du ration Value: 30 Brand Name: Januvia [...] us syringe kit active Medicatio n ID: [id number] Br and Name: Humira Se nd Method: E-Prescri bed Subs Allowed: subs [...] Updated DateTime 04/10/2024 157.48 cm 36.8 kg/m2 72512.[address] [facility] 04/10/2024 11:04:14 Date Recorded Body height Body mass index (BMI) Body weight Provider Name and Address Organization Details Last Updated DateTime 05/02/2024 157.48 cm 36.8 kg/m2 05354.07 g Jhon Acosta [place] - [facility] 05/02/2024 10:41:44 Social History None recorded. Functional [...] SNOMED-CT Code Diagnosis ICD10 Code Diagnosis Note [id number] ANA MARÍA VAZQUEZ MD [facility] [address] [place] [address] 04/10/2024 10:59:49 04/10/2024 11:20:03 Bilateral earache 024463529 H92.03 TMJ instructio ns given Impacted c erumen of bilateral ears 3507919252 077961 H61.23 Type 2 nelson betes mellitus 93177858 E11.9 [id number] SCOTT WALLER PA-C [facility] [address] [place] [address] 05/02/2024 10:39:35 05/02/2024 11:43:37 Bilateral earache 038571127 H92.03 05-02-2024 udiologica l evaluation results: Right ear: Normal hearing with excellent word recognitio n. Left ear: Normal hearing with excellent word recognitio n. Tympanomet ry: Right Ear:Type A Left Ear:Type Ad Health Concerns Section Related Observation LastModified by Organization Detai ls LastModified Time None Recorded Concern Status LastModified by Organization Details LastModified Time None Recorded Advance Directives Directive None Recorded Payers Insurance Date Sequence Insurance Name Policy Number Policy Rapp Covered Member ID Rapp Member ID Guarantor Name 04/29/2024 1 [place] [facility] Roxane Blackwell [id number] Roxane Blackwell Notes Date Note Type Note [...] for otitis externa. ANA MARÍA YEPEZ MD [address] [place] [address], [address], [facility] 04/10/2024 11:17:18 05/02/2024 text/html 59 year old silver thomas presents to the office for follow up of her right greater than left ear pain. She reports significant improvement in the pain since the last office visit. She has been doing vinegar drops and TMJ precautions. ANA MARÍA YEPEZ MD [address] [place] [address],[address], [address], [facility] 05/02/2024 13:25:59 OBGyn Episode No OBEpisode recorded.
== END 2025-01-28 14:21 | disposition home or self-care (01) ==
LOC: HO.MAMMO 14:20
PROVIDERS: PCP Internal Medicine; Visit Provider Internal Medicine
DX: Z12.31 Encounter for screening mammogram for malignant neoplasm of breast (principal)
CPT/HCPCS: 77063; 77067

== ENCOUNTER → 2025-01-28 14:30 | Outpatient (BNV) | payer MEDICAID, SELFPAY | PROVIDERS: PCP Internal Medicine; Visit Provider Internal Medicine | DX: Z12.31 Encounter for screening mammogram for malignant neoplasm of breast (principal) | CPT/HCPCS: 77063; 77067 ==

== ENCOUNTER 2025-03-03 08:09 | Outpatient (REF) | payer MEDICAID, SELFPAY ==
--- NOTE | ~2025-03-03 | XR_ITS ---
EXAMINATION: XR KNEE, RIGHT CLINICAL INFORMATION: M25.569 - Pain in unspecified knee COMPARISON: None available. TECHNIQUE: Three views of the right knee. FINDINGS: There is minimal joint space narrowing involving medial lateral compartment. There is chondrocalcinosis visible in the medial and lateral joint lines. Small to moderate sized marginal osteophytes are present in the 3 joint compartment. 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 Electronically signed by: Miguel Batres MD 03/03/2025 01:44 PM EDT
--- NOTE | ~2025-03-03 | XR_ITS ---
EXAMINATION: XR KNEE, LEFT CLINICAL INFORMATION: M25.569 - Pain in unspecified knee COMPARISON: None available. TECHNIQUE: Three views of the left knee. FINDINGS: There is no joint effusion. There is minimal joint space narrowing involving medial and lateral compartment. There is faint chondrocalcinosis visible in the medial and lateral joint lines. Small sized marginal osteophytes are present in the 3 joint compartment. XR/XR knee LT 3V IMPRESSION: Mild osteoarthritis secondary to CPPD arthropathy. Electronically signed by: Miguel Batres MD 03/03/2025 01:45 PM EDT
--- OUTSIDE RECORDS SUMMARY | 2025-03-03 08:14 | XMS_ITS | Data Portability ---
Author Organization [place] - [facility], Allergy Address [address] [address] Care Team Providers Care Performance Improvement Consultant Name Role Phone DARYA ALONZO Primary Care [...] audio gram No observ ation record ed. [email or web address] Not Available 04/15 12:04:27 Result Notes None recorded. Problems Name Problem SNOMED Code Status Onset Date Resolution Date Notes Provider Name and Address Organization Details Recorded Time Disorder of right Eustachia n tube 58251249065 Active 2019 Other specified disorders of Eustachia n tube, right ear; Note: Date Diagnosed : 08/30/2019 1:23 PM (H69.81) Not Available [facility] 4 02:15:03 Impacted cerumen in left ear 72567864054 Active 2019 Impacted cerumen, left ear; Note: Date Diagnosed : 08/30/2019 1:23 PM (H61.22) Not Available [facility] 4 02:15:35 Diffuse otitis externa 37417332 Active 2019 Diffuse otitis externa, right ear; Note: Date Diagnosed : 09/02/2019 10:58 AM (H60.311) Not Available [facility] 4 02:15:17 Bilateral earache 787731613 Active 2023 ANA MARÍA VAZQUEZ MD [address] [facility],[place] [address], [place], [address] , [facility] - [facility] 4 11:15:41 Impacted cerumen of bilateral ears [id number] 91598 Active 2023 ANA MARÍA VAZQUEZ MD [address] [place] [address],[place] [address], [place], [address] , [place] - [facility] 4 11:15:47 Type 2 diabetes mellitus 66904261 Active 2023 ANA MARÍA VAZQUEZ MD [address] [facility],[place] [address], [place], [address] , [place] - [facility] 4 11:16:51 Problem Notes None recorded. Procedures Surgical History Date Name Laterality Status Provider Name and Address Organization Details Recorded Time 05/02/2024 Air & Speech Audio with Tymps - 17451, 30376 & 16091 completed MARLY ROLLINS [place], [facility]-[address], [address], [place] - [facility] 05/02/2024 11:20:41 Imaging Results None recorded. Procedure [...] mg tablet 2018 active Medicatio n ID: [id number] Du ration Value: 30 Brand Name: atorvasta [...] 24 hr 2018 active Medicatio n ID: [id number] Du ration Value: 30 Brand Name: metoprolo [...] 40 mg tablet active Medicatio n ID: [id number] Br and Name: Paxil Sen d Method: [...] 300 mg capsule active Medicatio n ID: [id number] Br and Name: gabapenti n Send Method: [...] mg tablet 2018 active Medicatio n ID: [id number] Du ration Value: 30 Brand Name: folic acid Send Method: E-Prescri bed Subs Allowed: subs OK Specia l Instructi on: TAKE 5 TABLETS ONCE A DAY ORALLY 30 Medica tionGener icName: folic acid Not Available Not Available Not Available hydrochlor othiazide 25 mg tablet 2018 active Medicatio n ID: [id number] Du ration Value: 30 Brand Name: hydrochlo [...] 10 mg tablet active Medicatio n ID: [id number] Br and Name: zolpidem Send Method: E-Prescri bed Subs Allowed: subs OK Medica tionGener icName: zolpidem Not Available Not Available Not Available lisinopril 40 mg tablet TAKE 1 TABLET BY MOUTH EVERY DAY active Not Available Not Available No t Available Klonopin 1 mg tablet active Medicatio n ID: [id number] Br and Name: Klonopin Send Method: E-Prescri [...] topical cream 2018 active Medicatio n ID: [id number] Du ration Value: 30 Brand Name: ciclopiro x Send Method: E-Prescri bed Subs Allowed: subs OK Specia l Instructi on: APPLY TO AFFECTED AREA TWICE A DAY Medic ationGene ricName: ciclopiro x Not Available Not Available Not Available Humira 40 mg/0.8 mL subcutaneo us syringe kit active Not Available Not Available Not Available Januvia 100 mg tablet 2018 active Medicatio n ID: [id number] Du ration Value: 30 Brand Name: Januvia [...] us syringe kit active Medicatio n ID: [id number] Br and Name: Humira Se nd Method: [...] Updated DateTime 04/10/2024 157.48 cm 36.8 kg/m2 36486.07 g Blayne Martinez [place] - [facility] 04/10/2024 11:04:14 Date Recorded Body height Body mass index (BMI) Body weight Provider Name and Address Organization Details Last Updated DateTime 05/02/2024 157.48 cm 36.8 kg/m2 79011.07 g Jhon Acosta [place] [facility] 05/02/2024 10:41:44 Social History None recorded. Functional [...] SNOMED-CT Code Diagnosis ICD10 Code Diagnosis Note [id number] ANA MARÍA VAZQUEZ MD [facility] [address] [address] 04/10/2024 10:59:49 04/10/2024 11:20:03 Bilateral earache 005233881 H92.03 TMJ instructio ns given Impacted c erumen of bilateral ears [id number] 974051 H61.23 Type 2 nelson betes mellitus 48727433 E11.9 [id number] SCOTT WALLER PA-C [facility] [address] [place] [address] 05/02/2024 10:39:35 05/02/2024 11:43:37 Bilateral earache [id number] H92.03 05-02-2024 udiologica l evaluation results: Right [...] Rapp Member ID Guarantor Name 04/29/2024 1 [place] [facility] Roxane Blackwell [id number] Roxane Blackwell Notes Date Note Type Note [...] for otitis externa. ANA MARÍA YEPEZ MD [address] [place] [address], [phone], [facility] 04/10/2024 11:17:18 05/02/2024 text/html 59 year old silver thomas presents to the office for follow up of her right greater than left ear pain. She reports significant improvement in the pain since the last office visit. She has been doing vinegar drops and TMJ precautions. ANA MARÍA YEPEZ MD [address] [place] [address],[address], [address], [facility] 05/02/2024 13:25:59 OBGyn Episode No OBEpisode recorded.
== END 2025-03-03 08:10 | disposition home or self-care (01) ==
LOC: HO.HOSX 08:09
PROVIDERS: Visit Provider Physician Assistant
DX: M17.12 Unilateral primary osteoarthritis, left knee (principal); M17.11 Unilateral primary osteoarthritis, right knee
CPT/HCPCS: 73562; 99212

== ENCOUNTER 2025-03-03 13:22 | Outpatient (AMB) | payer MEDICAID, SELFPAY ==
--- NOTE | 2025-03-03 13:31 | A.OFFVIS_ITS ---
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 Hx of a slip and fall from her shower about 20 yrs ago. Patient was seen by rheumatology who ordered x-rays and referred to orthopedics for bilateral knee OA to discuss her options. Patient reports her right knee is the worse than the left. She mentions ongoing pain since June. She has taken muscle relaxer and naproxen with mild relief. 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 Blackwell is a 59-year-old female who presents to the office today for evaluation of bilateral knee osteoarthritis. She has been seen by Rheumatology and treated for psoriasis. Additionally, she has poorly controlled diabetes in which she takes Trulicity, insulin and metformin. Her last A1c was 10.5 on 12/02/2024. [facility] Medical History Psoriasis Psoriatic arthritis Surgical History Hx of section Family History Mother Diabetes HTN (hypertension) Social History (Updated 03/03/25 @ 13:39 by Cindy He) Alcohol intake: current Alcohol intake frequency: does not drink Patient Tobacco Use Status: Never used Tobacco e-Cigarette/Vaping Use: Never Used Current occupational status: disabled Current occupation: right hand dominant Review of Systems Const All systems reviewed & are unremarkable except as noted in HPI and below Physical Exam Vital Signs: BMI result Body Mass Index 39.0 Extrem Other: Bilateral knees: Right knee mild effusion. Left knee no effusion. No tenderness to palpation along the medial or lateral joint lines. Full knee extension and flexion. NVI. Assessment & Plan Assessment & Plan (1) Psoriatic arthritis: Comment: Humira: 02/2017 advanced to weekly 06/2023 ineffective for skin Methotrexate: 2017-present Anirudh 12/2023 Code(s): L40.50 - Arthropathic psoriasis, unspecified Category: Medical (2) Diabetes mellitus: Code(s): E11.9 - Type 2 diabetes mellitus without complications Category: Medical Plan Ms. Blackwell is a 59-year-old female who presents to the office today for evaluation of bilateral knee osteoarthritis. She has been seen by Rheumatology and treated for psoriasis. Additionally, she has poorly controlled diabetes in which she takes Trulicity, insulin and metformin. Her last A1c was 10.5 on 12/02/2024. On the office today, we discussed the role of cortisone injection. Due to the patient's uncontrolled diabetes and recent A1c of 10.5 I have recommended cortisone injections be done 1 at a time. 40 mg of Depo should be used and the patient was educated on the side effects of cortisone on glucose levels. She demonstrates understanding but wishes to postpone the injections as her birthday is coming up and does not want to risk an increase in pain. She will follow up after her birthday festivities for the 1st cortisone injection and then roughly 2 weeks later for the next. X-rays of the bilateral knee which were obtained while in the office today and were reviewed by me, Alla Whitney PA-C, revealed arthritis. Orders: Orders XR knee RT 3V Today M25.569 - Pain in unspecified knee XR knee LT 3V Today M25.569 - Pain in unspecified knee Coding Level of Care Code New Pt Level 4 (51122) Diagnoses Psoriatic arthritis L40.50 Diabetes mellitus E11.9
[2025-03-03 13:38] VITALS: BMI 39.0
== END 2025-03-03 14:12 | disposition home or self-care (01) ==
LOC: HO.HOS 13:22
PROVIDERS: PCP Internal Medicine; Visit Provider Physician Assistant
DX: L40.50 Arthropathic psoriasis, unspecified (principal); E11.9 Type 2 diabetes mellitus without complications
CPT/HCPCS: 99204

== ENCOUNTER → 2025-03-03 13:25 | Outpatient (BNV) | payer MEDICAID, SELFPAY | PROVIDERS: Visit Provider Radiology Diagnostic Radiology | DX: M11.261 Other chondrocalcinosis, right knee (principal); M11.262 Other chondrocalcinosis, left knee | CPT/HCPCS: 73562 ==

== ENCOUNTER 2025-03-26 12:25 | Outpatient (REF) | payer MEDICAID, SELFPAY ==
[2025-03-26 13:56] LABS: MANUAL DIFF FLAG NO
[2025-03-26 14:04] LABS: Hematocrit 40.9 % (37.0-47.0); Hemoglobin 13.4 g/dl (12.0-16.0); Imm Gran Abs Auto 0.02 X10*3/uL (0.00-0.03); Imm Gran Pct Auto 0.3 % (0.0-0.4); Lymphocytes Absolute Auto 1.5 X10*3/uL (1.2-4.9); Mean Corpuscular HGB Conc 32.8 g/dl (31.0-35.0); Mean Corpuscular Hemoglobin 31.8 pg (27.0-33.0); Mean Corpuscular Volume 96.9 fL (80.0-98.0); NRBC Abs Auto 0.000 X10*3/uL (0.0-0.012); NRBC Pct Auto 0.0 /100WBC (0.0-0.2); Platelet Count 265 X10*3/uL (160-400); Red Blood Count 4.22 X10*6/uL (4.20-5.50); White Blood Count 5.9 X10*3/uL (4.8-10.8)
[2025-03-26 14:23] LABS: Hemoglobin A1C 353.9780 umol/L; Total Hemoglobin (HGBA1C) 3554.9415 umol/L
[2025-03-26 14:42] LABS: Alanine Aminotransferase 12 U/L (0-31); Albumin Level 4.0 g/dL (3.5-5.0); Alkaline Phosphatase 78 U/L (39-117); Anion Gap 13 (12-20); Aspartate Amino Transferase 21 U/L (5-31); Blood Urea Nitrogen 14 mg/dL (9-16); Calcium 9.6 mg/dL (8.4-10.2); Carbon Dioxide 30 mmol/L (22-29); Chloride 104 mmol/L (96-108); Estimated Glomerular Filt Rate > 60; Potassium 3.7 mmol/L (3.3-5.1); Sodium 143 mmol/L (135-145); Total Protein 8.1 g/dL (6.5-8.0)
[2025-03-26 14:45] LABS: Cholesterol 226 mg/dL (<200); HDL Cholesterol 43 mg/dL (>40); Triglycerides 250 mg/dL (<150)
[2025-03-26 14:48] LABS: Microalbum/Creatinine Ratio Ur 176.2 ug/mg cr (<30)
[2025-03-27 04:29] LABS: HBS Num1 0.00 mIU/mL (0-7.99); HBc Num1 0.08 S/CO (0.00-0.79); HBsAGNum1 0.36 S/CO (0.00-0.99); Hepatitis A Antibody IgM 0.22 Index (0-0.79); Hepatitis B Surface Antigen Negative (Negative); ~HepC Num1 0.12 S/CO (0.00-0.79); ~Hepatitis A Antibody IgM Nonreactive (Nonreactive); ~Hepatitis B Surface Antibody NONREACTIVE (Nonreactive); ~Hepatitis C Antibody Nonreactive (Nonreactive)
[2025-03-28 23:59] LABS: TS Negative Control Passed; TS Panel A 1; TS Panel B 0; TS Positive Control Passed; TSpotTB Negative (Negative)
== END 2025-03-26 12:26 | disposition home or self-care (01) ==
LOC: HO.10HDL 12:25
PROVIDERS: Referring Provider Internal Medicine; Visit Provider Student in an Organized Health Care Education/Training Program
DX: Z00.01 Encounter for general adult medical examination with abnormal findings (principal); E11.65 Type 2 diabetes mellitus with hyperglycemia; E78.00 Pure hypercholesterolemia, unspecified; I10 Essential (primary) hypertension; L40.50 Arthropathic psoriasis, unspecified
CPT/HCPCS: 36415; 80053; 80061; 82043; 82570; 83036; 85025; 85652; 86140; 86481; 86704; 86706; 86709; 86803; 87340

== ENCOUNTER 2025-06-03 11:17 | Outpatient (AMB) | payer MEDICAID, SELFPAY ==
--- NOTE | 2025-06-03 11:24 | A.OFFVIS_ITS ---
Intake Visit Reasons: Inj - left knee injection Intake Note: Roxane is a 60 year old female who presents today for a injection for her left knee. Allergies No Known Allergies (No Known Allergies*) Allergy (Verified 06/03/25 11:37) HPI HPI Inj - left knee injection: Details: Ms. Seay is a 60-year-old female who presents to the office today for chronic right knee pain. At her last appointment on 03/03/2025 the patient was looking to postpone cortisone injections due to some upcoming events surrounding her birthday. She would like to move forward with right knee cortisone injection while in the office today. I have recommended not doing bilateral knees with the same time due to her uncontrolled diabetes. [facility] Medical History Psoriasis Psoriatic arthritis Surgical History Hx of section Family History Mother Diabetes HTN (hypertension) Social History Alcohol intake: current Alcohol intake frequency: does not drink Patient Tobacco Use Status: Never used Tobacco e-Cigarette/Vaping Use: Never Used Current occupational status: disabled Current occupation: right hand dominant Review of Systems Const All systems reviewed & are unremarkable except as noted in HPI and below Physical Exam Extrem Other: Right knee mild effusion. Left knee no effusion. No tenderness to palpation along the medial or lateral joint lines. Full knee extension and flexion. NVI. Office Procedures AMB Joint Injection/Aspiration Joint Injection/Aspiration Primary Site: right knee Prep: site was prepped using aseptic technique, ethochloride spray was applied and injection warnings given Injected: 40 mg of, with 3 mL of, 1% plain lidocaine, 0.25% bupivacaine, in the joint and decadron Approach Used: anterolateral Procedure: The patient tolerated the procedure well, but had some pain with the injection and there was some relief with the local anesthesia Coding 39980 - Large joint Procedure code (CPT) selection complete Assessment & Plan Assessment & Plan (1) Diabetes mellitus: Code(s): E11.9 - Type 2 diabetes mellitus without complications Category: Medical (2) Osteoarthritis of right knee: Code(s): M17.11 - Unilateral primary osteoarthritis, right knee Category: Medical Plan Ms. Seay is a 60-year-old female who presents to the office today for chronic right knee pain. At her last appointment on 03/03/2025 the patient was looking to postpone cortisone injections due to some upcoming events surrounding her birthday. She would like to move forward with right knee cortisone injection while in the office today. I have recommended not doing bilateral knees with the same time due to her uncontrolled diabetes. The patient was offered a cortisone injection in the right knee. The patient was explained the risks, benefits, and alternatives to receiving this injection. After receiving consent for the injection, the patient had the procedure done while in the office today. The patient tolerated the procedure well with no complications. Due to the patient?s history of diabetes, they were instructed to monitor their blood glucose level. The patient was informed that they could see a rise in their numbers and if the numbers became too high, they were instructed to call their PCP. The patient was also informed that they could have facial flushing as a side effect of the injection, but this will pass. Follow-up will be PRN, or sooner if needed Coding Level of Care Code Est Pt Level 4 (66474) Diagnoses Diabetes mellitus E11.9 Osteoarthritis of right knee M17.11 CPT Codes Coding - 63786 Large joint: 40925 - Large joint ([id number])
== END 2025-06-03 11:37 | disposition home or self-care (01) ==
LOC: HO.HOS 11:17
PROVIDERS: PCP Internal Medicine; Visit Provider Physician Assistant
DX: E11.9 Type 2 diabetes mellitus without complications (principal); M17.11 Unilateral primary osteoarthritis, right knee
CPT/HCPCS: 20610; 99214

== ENCOUNTER → 2025-06-03 11:17 | Outpatient (BNVA) | payer MEDICAID, SELFPAY | PROVIDERS: PCP Internal Medicine; Visit Provider Physician Assistant | DX: M17.11 Unilateral primary osteoarthritis, right knee (principal); E11.9 Type 2 diabetes mellitus without complications | CPT/HCPCS: 20610; 99212; J0665; J1100; J2003 ==

== ENCOUNTER 2025-07-28 12:49 | Observation (INO) | payer MEDICAID, SELFPAY ==
--- NOTE | ~2025-07-28 | XR_ITS ---
EXAMINATION: XR CHEST CLINICAL INFORMATION: Chest pain COMPARISON: None available. TECHNIQUE: Frontal view of the chest was obtained. FINDINGS: The cardiac, hilar, and mediastinal contours are normal. Mild aortic mural calcification. The lungs are clear bilaterally. No pneumothorax or effusion. No focal osseous or soft tissue abnormality. XR/XR chest 1V IMPRESSION: No active pulmonary disease. Electronically signed by: Hardeep De Santiago MD 07/28/2025 01:23 PM [facility]
--- NOTE | 2025-07-28 12:52 | ECG_ITS ---
Test Reason : CP Blood Pressure : */* mmHG Vent. Rate : 80 BPM Atrial Rate : 80 BPM P-R Int : 160 ms QRS Dur : 88 ms QT Int : 384 ms P-R-T Axes : 44 0 40 degrees QTcB Int : 442 ms Normal sinus rhythm Inferior infarct , age undetermined Possible Anterior infarct , age undetermined Abnormal ECG No previous ECGs available Referred By: Generic ED Physician Electronically Signed By: Arnol Arzola
[2025-07-28 12:56] VITALS: BP 210/120; PULSE 80; O2SAT 96
[2025-07-28 13:00] VITALS: BP 153/77; PULSE 91; RESP 18; TEMP 36.9; O2SAT 96; BMI 40.7
[2025-07-28 14:16] LABS: MANUAL DIFF FLAG NO
[2025-07-28 14:18] LABS: Hematocrit 37.9 % (37.0-47.0); Hemoglobin 12.3 g/dl (12.0-16.0); Imm Gran Abs Auto 0.01 X10*3/uL (0.00-0.03); Imm Gran Pct Auto 0.2 % (0.0-0.4); Lymphocytes Absolute Auto 1.7 X10*3/uL (1.2-4.9); Mean Corpuscular HGB Conc 32.5 g/dl (31.0-35.0); Mean Corpuscular Hemoglobin 31.6 pg (27.0-33.0); Mean Corpuscular Volume 97.4 fL (80.0-98.0); NRBC Abs Auto 0.000 X10*3/uL (0.0-0.012); NRBC Pct Auto 0.0 /100WBC (0.0-0.2); Platelet Count 248 X10*3/uL (160-400); Red Blood Count 3.89 X10*6/uL (4.20-5.50); White Blood Count 5.0 X10*3/uL (4.8-10.8)
--- NOTE | 2025-07-28 14:24 | ED.CHESTPAIN ---
HPI - Chest Pain General Chief Complaint: Chest Pain Stated Complaint: CP,NITRO GIVEN PER EMS Time Seen by Provider: 07/28/25 13:09 Source: patient Mode of arrival: ambulatory Limitations: no limitations History of Present Illness ED Provider: Dr. Horne HPI narrative: 60-year-old female history of hypertension hyperlipidemia diabetes presented to ER today for evaluation of sudden onset of left-sided chest pain. Denies any pleuritic aspect of his chest pain. Patient stated this pain radiates to her left arm. She also has numbness associated with this chest pain. Reproducible in nature. Patient was given aspirin and nitroglycerin by EMS which did alleviate her chest pain. Denies any shortness of breath or coughing. She is also complaining of bilateral lower extremity pain. Related Data Home Medications ?Medication ?Instructions ?Recorded ?Confirmed albuterol sulfate 90 mcg/actuation 2 puff inhalation Q6H PRN 09/23/20 12/12/24 aerosol inhaler (ProAir HFA) amlodipine 10 mg tablet 10 mg PO DAILY 09/23/20 12/12/24 beclomethasone dipropionate 80 1 inh inhalation BID 09/23/20 12/12/24 mcg/actuation HFA breath activated aerosol (Qvar RediHaler) clonazepam 1 mg tablet (Klonopin) 1 mg PO BID 09/23/20 12/12/24 glimepiride 2 mg tablet 2 mg PO DAILY 09/23/20 12/12/24 hydrochlorothiazide 25 mg tablet 25 mg PO DAILY 09/23/20 12/12/24 metformin 1,000 mg tablet 1,000 mg PO BID 09/23/20 12/12/24 omeprazole 20 mg capsule,delayed 20 mg PO DAILY 09/23/20 12/12/24 release paroxetine HCl 40 mg tablet (Paxil) 40 mg PO DAILY 09/23/20 12/12/24 zolpidem 10 mg tablet 10 mg PO BEDTIME PRN 09/23/20 12/12/24 empagliflozin 25 mg tablet 25 mg PO QAM 06/02/22 12/12/24 (Jardiance) lisinopril 40 mg tablet 40 mg PO DAILY 06/02/22 12/12/24 metoprolol succinate 100 mg 100 mg PO DAILY 06/02/22 12/12/24 tablet,extended release 24 hr gabapentin 300 mg capsule 300 mg PO TID 09/29/22 12/12/24 atorvastatin 80 mg tablet 80 mg PO DAILY 04/05/23 12/12/24 insulin glargine 100 unit/mL 80 unit subcut QPM 04/05/23 12/12/24 subcutaneous solution (Lantus U-100 Insulin) blood sugar diagnostic (FreeStyle #10 ea 10/09/24 12/12/24 Lite Strips) dulaglutide 3 mg/0.5 mL mg subcut QWEEK 10/09/24 12/12/24 subcutaneous pen injector (Trulicity) ergocalciferol (vitamin D2) 1,250 1,250 mcg PO QWEEK 10/09/24 12/12/24 mcg (50,000 unit) capsule insulin lispro 100 unit/mL 35 unit subcut TID 10/09/24 12/12/24 subcutaneous pen lancets 28 gauge (FreeStyle #100 ea 10/09/24 12/12/24 Lancets) naproxen 500 mg tablet 500 mg PO BID PRN pain 10/09/24 12/12/24 pen needle, diabetic 32 gauge x #1,200 ea 10/09/24 12/12/24 (BD Kandice 2nd Gen Pen Needle) Previous Rx's ?Medication ?Instructions ?Recorded diclofenac sodium 1 % topical gel 2 g transdermal BID PRN pain #100 04/19/21 grams triamcinolone acetonide 0.1 % 1 appl topical BID #30 grams 09/29/22 topical ointment ceramides 1 appl topical BEDTIME #89 mL 02/20/24 1,3,7-AR-mdmyeanxnzm-hyaluronic acid ER lotion (CeraVe PM lotion,extended release) bisacodyl 5 mg tablet,delayed 20 mg (4 x 5 mg) PO ONCE 1 day #4 10/09/24 release (Dulcolax (bisacodyl)) tabs polyethylene glycol 3350 17 238 g PO ONCE #238 grams 10/09/24 gram/dose oral powder (Miralax) apremilast 30 mg tablet 30 mg PO BID #180 tabs 03/06/25 cyclobenzaprine 10 mg tablet 10 mg PO TID PRN for muscle spasm 03/06/25 #270 tabs folic acid 1 mg tablet 1 mg PO DAILY #90 tabs 03/06/25 methotrexate sodium 2.5 mg tablet 15 mg (6 x 2.5 mg) PO QWEEK #72 03/06/25 tabs Taltz Autoinjector 80 mg/mL 80 mg subcut Q4W #1 mL 05/09/25 subcutaneous (ixekizumab) Allergies Allergy/AdvReac Type Severity Reaction Status Date / Time No Known Allergies (No Known Allergy Verified 07/28/25 13:03 Allergies*) Review of Systems Review of Systems: Pertinent review of systems as mentioned in HPI. All other system otherwise negative. [facility] Past Medical History [facility] Narrative: Medical history as mentioned in HPI Medical History Psoriasis Psoriatic arthritis Surgical History Hx of section Family History Family History Mother Diabetes HTN (hypertension) Social History Social History Alcohol intake: current Alcohol intake frequency: does not drink Patient Tobacco Use Status: Never used Tobacco Smoked in Last 30 Days: No e-Cigarette/Vaping Use: Never Used Advance Directives: Yes Advance Directives Information Provided: Yes Advance Directives on File: No Current occupational status: disabled Current occupation: right hand dominant Physical Exam Exam: Exam: General: Pleasant, no distress, interacting appropriately Head: Normacephalic, atraumatic ENT: oral mucosa moist, neck supple, no tracheal deviation Cardiovascular: regular rate, regular rhythm, no murmurs, rubbing, gallops, left-sided reproducible chest pain on exam Respiratory: CTAB, no wheeze, rales, rhonchi Extremities: No limb pain or swelling, no calf tenderness Neurological: Awake and alert, no facial droop noted, sensation intact bilaterally, no sign of ataxia [id number]-[id number] bilaterally. Patient does have good strength in upper and lower extremities. Skin: Warm and dry Psychiatric: Appropriate mood and thoughts Vital Signs: Vital Signs: Last Vital Signs Temp 98.5 F 07/28/25 13:00 Pulse 77 07/28/25 14:56 Resp 20 07/28/25 14:56 BP 184/99 H 07/28/25 14:56 Pulse Ox 97 07/28/25 14:56 O2 Del Method Room Air 07/28/25 14:56 BMI result Body Mass Index 40.7 Medical Decision Making Medical Decision Making [facility] Narrative: This is a 60-year-old female history of hypertension, hyperlipidemia, diabetes presented hospital today for evaluation of left-sided chest pain that radiates to her left arm with numbness. EKG will be obtain ACS workup will be obtained as well. We will obtain a chest x-ray for the patient. Initial troponin is negative with assess a 2nd troponin. EKG did not show any signs of STEMI. Chest x-ray did not show any signs of acute cardiopulmonary process. Patient has a heart score of 4. Admit for chest pain observation. patient's stated that she is concerned about a stroke. I do not think patient has a stroke based on my neurological exam. Differential Diagnosis Differential Diagnoses: The differential diagnosis associated with the presentation includes ACS, angina, STEMI Lab Data [facility] Lab Attestation statement: I reviewed the patient's lab results. 07/28/25 14:11 07/28/25 14:11 Labs: Lab Results 07/28/25 Range/Units 14:11 WBC 5.0 (4.8-10.8) X10*3/uL RBC 3.89 L (4.20-5.50) X10*6/uL Hgb 12.3 (12.0-16.0) g/dl Hct 37.9 (37.0-47.0) % MCV 97.4 (80.0-98.0) fL MCH 31.6 (27.0-33.0) pg MCHC 32.5 (31.0-35.0) g/dl RDW 12.8 (11.0-16.0) % Plt Count 248 (160-400) X10*3/uL MPV 10.7 (9.4-12.3) fL Immature Gran % (Auto) 0.2 (0.0-0.4) % Neut % (Auto) 54.2 (45-73) % Lymph % (Auto) 34.6 (20-40) % Gilliam % (Auto) 7.6 (2-11) % Eos % (Auto) 2.6 (0-4) % Baso % (Auto) 0.8 (0-2) % Lymph # (Auto) 1.7 (1.2-4.9) X10*3/uL Gilliam # (Auto) 0.4 (0.1-1.2) X10*3/uL Eos # (Auto) 0.1 (0.0-0.4) X10*3/uL Baso # (Auto) 0.0 (0.0-0.2) X10*3/uL Abs Immat Gran (auto) 0.01 (0.00-0.03) X10*3/uL Absolute Neuts (auto) 2.7 (2.0-8.3) x10*3/uL Absolute Nucleated RBC 0.000 (0.0-0.012) X10*3/uL Nucleated RBC % (auto) 0.0 (0.0-0.2) /100WBC Sodium 140 (135-145) mmol/L Potassium 3.7 (3.3-5.1) mmol/L Chloride 107 (96-108) mmol/L Carbon Dioxide 27 (22-29) mmol/L Anion Gap 10 L (12-20) BUN 14 (9-16) mg/dL Creatinine 0.63 (0.5-1.4) mg/dL Estim Creat Clear Calc 102.9 Estimated GFR > 60 Random Glucose 206 H (60-115) mg/dL Calcium 9.7 (8.4-10.2) mg/dL Total Bilirubin 0.4 (0.0-1.0) mg/dL AST 21 (5-31) U/L ALT 11 (0-31) U/L Alkaline Phosphatase 80 (39-117) U/L Troponin I High Sens < 2.7 (<3.5-17.0) ng/L Total Protein 7.5 (6.5-8.0) g/dL Albumin 3.9 (3.5-5.0) g/dL Independent Interpretation I performed an independent interpretation of an: EKG and Plain X-Ray Radiology Impression Discussion of test interpretation with radiology: I have reviewed the radiologist's reading. Chronic Conditions Patient?s care impacted by: Diabetes and Hypertension Discharge Plan Discharge Clinical Impression: Chest pain Patient Disposition: Admitted As Inpatient Print Language: Romanian
[2025-07-28 14:35] LABS: Alanine Aminotransferase 11 U/L (0-31); Albumin Level 3.9 g/dL (3.5-5.0); Alkaline Phosphatase 80 U/L (39-117); Anion Gap 10 (12-20); Aspartate Amino Transferase 21 U/L (5-31); Blood Urea Nitrogen 14 mg/dL (9-16); Calcium 9.7 mg/dL (8.4-10.2); Carbon Dioxide 27 mmol/L (22-29); Chloride 107 mmol/L (96-108); Creatinine Clr Calc Pharmacy 102.9; Estimated Glomerular Filt Rate > 60; Potassium 3.7 mmol/L (3.3-5.1); Sodium 140 mmol/L (135-145); Total Protein 7.5 g/dL (6.5-8.0)
[2025-07-28 14:48] LABS: Troponin-I High Sensitivity < 2.7 ng/L (<3.5-17.0)
[2025-07-28 14:56] VITALS: BP 184/99; PULSE 77; RESP 20; O2SAT 97
[2025-07-28 16:34] LABS: Troponin-I High Sensitivity 4.4 ng/L (<3.5-17.0)
--- NOTE | 2025-07-28 17:56 | PM.IMHP ---
History of Present Illness Date of Service: 07/28/25 Chief Complaint: Chest pain 60-year-old female with a history of hypertension hyperlipidemia and diabetes presents to ER today for sudden onset of left-sided chest pain. She states she was fine yesterday but awoke with this pain after sleep. She does note that she took a clonazepam last night to help her sleep and awoke this morning with this pain. The pain does not radiate down her arm and is not reproducible with head movements. She is exquisitely tender to palpation Review of Systems Review of Systems: Admits to reproducible left-sided chest pain Denies shortness of breath Denies nausea vomiting diarrhea Denies fever chills PMFSH Medical History Psoriasis Psoriatic arthritis Family History Mother Diabetes HTN (hypertension) Surgical History Hx of section Social History Alcohol intake: current Alcohol intake frequency: does not drink Patient Tobacco Use Status: Never used Tobacco Smoked in Last 30 Days: No e-Cigarette/Vaping Use: Never Used Advance Directives: Yes Advance Directives Information Provided: Yes Advance Directives on File: No Current occupational status: disabled Current occupation: right hand dominant Meds Allergies Allergy/AdvReac Type Severity Reaction Status Date / Time No Known Allergies (No Known Allergy Verified 07/28/25 13:03 Allergies*) Active Medications: Current Medications Acetaminophen (Acetaminophen 325 Mg Tablet) 650 mg PO Q6H PRN PRN Reason: Pain, Mild 1-3,fever,headache Calcium Carbonate (Calcium Carbonate 750 Mg Tab.Chew) 750 mg PO Q4H PRN PRN Reason: Heartburn Enoxaparin Sodium (Enoxaparin Sodium 40 Mg/0.4 Ml Syringe) 40 mg SUBCUT Q24H TIM Magnesium Hydroxide (Milk Of Magnesia 30 Ml Oral.Susp) 30 ml PO DAILY PRN PRN Reason: Constipation Melatonin (Melatonin 3 Mg Tablet) 6 mg PO BEDTIME PRN PRN Reason: Insomnia Sodium Chloride (0.9 % Sodium Chloride Flush 3 Ml Syringe) 3 ml IVFLUSH QSHIFT TIM Home Medications ?Medication ?Instructions ?Recorded ?Confirmed ?Last Taken ?Type albuterol sulfate 90 mcg/actuation 2 puff inhalation Q6H PRN 09/23/20 12/12/24 Unknown History aerosol inhaler (ProAir HFA) amlodipine 10 mg tablet 10 mg PO DAILY 09/23/20 12/12/24 Unknown History beclomethasone dipropionate 80 1 inh inhalation BID 09/23/20 12/12/24 Unknown History mcg/actuation HFA breath activated aerosol (Qvar RediHaler) metformin 1,000 mg tablet 1,000 mg PO BID 09/23/20 12/12/24 Unknown History omeprazole 20 mg capsule,delayed 20 mg PO DAILY 09/23/20 12/12/24 Unknown History release empagliflozin 25 mg tablet 25 mg PO QAM 06/02/22 12/12/24 Unknown History (Jardiance) atorvastatin 80 mg tablet 80 mg PO DAILY 04/05/23 12/12/24 Unknown History insulin glargine 100 unit/mL 80 unit subcut QPM 04/05/23 12/12/24 Unknown History subcutaneous solution (Lantus U-100 Insulin) blood sugar diagnostic (FreeStyle #10 ea 10/09/24 12/12/24 Unknown History Lite Strips) dulaglutide 3 mg/0.5 mL mg subcut QWEEK 10/09/24 12/12/24 Unknown History subcutaneous pen injector (Trulicity) ergocalciferol (vitamin D2) 1,250 1,250 mcg PO QWEEK 10/09/24 12/12/24 Unknown History mcg (50,000 unit) capsule insulin lispro 100 unit/mL 35 unit subcut TID 10/09/24 12/12/24 Unknown History subcutaneous pen lancets 28 gauge (FreeStyle #100 ea 10/09/24 12/12/24 Unknown History Lancets) naproxen 500 mg tablet 500 mg PO BID PRN pain 10/09/24 12/12/24 Unknown History pen needle, diabetic 32 gauge x #1,200 ea 10/09/24 12/12/24 Unknown History (BD Kandice 2nd Gen Pen Needle) Physical Exam Vital Signs and Narrative: Vital Signs: Last Vital Signs Temp 98.5 F 07/28/25 13:00 Pulse 77 07/28/25 14:56 Resp 20 07/28/25 14:56 BP 184/99 H 07/28/25 14:56 Pulse Ox 97 07/28/25 14:56 O2 Del Method Room Air 07/28/25 14:56 BMI result Body Mass Index 40.7 Const: Other: Awake alert no acute distress Chest: Other: Tender to mild pressure left upper chest Resp: Other: Clear to auscultation bilaterally no rales rhonchi or wheezes Cardio: Other: No S4; positive S1-S2; no S3 murmurs rubs or gallops GI: Other: Soft nontender nondistended normoactive bowel sounds Neuro: Other: Cranial nerves 2-12 grossly intact as tested. Motor is 5/5 all extremities. Sensation is intact Extrem: Other: No edema bilaterally Results Labs 07/28/25 14:11 07/28/25 14:11 Labs: Laboratory Results - last 24 hr 07/28/25 07/28/25 14:11 16:05 MCV 97.4 MCH 31.6 MCHC 32.5 RDW 12.8 Plt Count 248 MPV 10.7 Immature Gran % (Auto) 0.2 Neut % (Auto) 54.2 Lymph % (Auto) 34.6 Williams % (Auto) 7.6 Eos % (Auto) 2.6 Baso % (Auto) 0.8 Lymph # (Auto) 1.7 Williams # (Auto) 0.4 Eos # (Auto) 0.1 Baso # (Auto) 0.0 Abs Immat Gran (auto) 0.01 Absolute Neuts (auto) 2.7 Absolute Nucleated RBC 0.000 Nucleated RBC % (auto) 0.0 Anion Gap 10 L Estim Creat Clear Calc 102.9 Estimated GFR > 60 Random Glucose 206 H Calcium 9.7 Total Bilirubin 0.4 AST 21 ALT 11 Alkaline Phosphatase 80 Troponin I High Sens < 2.7 4.4 D Total Protein 7.5 Albumin 3.9 Imaging Radiologist's Impressions: Impressions Chest X-Ray 07/28/25 13:13 IMPRESSION: No active pulmonary disease. Electronically signed by: Hardeep De Santiago MD 07/28/2025 01:23 PM [facility] [place] and Plan (1) Chest pain: Qualifiers: Chest pain type: unspecified Qualified Code(s): R07.9 - Chest pain, unspecified Status: Acute (2) Diabetes mellitus: Qualifiers: Diabetes mellitus complication status: without complication Diabetes mellitus chcf insulin use: with chcf use Diabetes mellitus type: type 2 Qualified Code(s): E11.9 - Type 2 diabetes mellitus without complications; Z79.4 - FPC (current) use of insulin Status: Acute (3) Diabetes 1.5, managed as type 2: Status: Acute Plan 60-year-old female with a history of hypertension hyperlipidemia and diabetes presents to ER for evaluation of sudden onset of left-sided chest pain. This pain is reproducible and does not radiate. She has no accompanying cardiac symptoms such as orthopnea dyspnea with exertion her diaphoresis 1. Chest pain (likely atypical) -troponins flat; we will trend overnight -monitor on telemetry -likely DC in a.m. 2. Diabetes type 2 -describes acceptable control at home -diabetic diet -continue outpatient therapies... Decrease HS Lantus by 30% and follow 3. Hypertension -poorly control at present -has not taken a.m. meds; restart and follow clinically -adjust as indicated 4. Asthma -stable and well compensated -continue outpatient therapies Full code Lovenox Patient requires 1 midnight stay to complete workup for chest pain Quality Stroke Does the patient have a stroke diagnosis?: No VTE Prior VTE?: No VTE Risk Level:: Medical - moderate - high VTE Device Contraindication: Treatment Not Indicated VTE Drug Contraindication: N/A - Med Ordered
[2025-07-28 18:23] VITALS: BP 112/55; PULSE 91; RESP 18; O2SAT 97
--- NOTE | 2025-07-28 19:02 | PHA.MEDREC ---
Pharmacy Consult ? Medication Reconciliation Pharmacy has completed the medication reconciliation. Spoke with patient at bedside with help from intepreter services. She was able to confirm her home meds. She takes Trulicity on Mondays and didn't take it today, Ergocalciferol on Wednesdays, and Methotrexate 6 tabs (15mg) on Fridays. Also her Taltz injector she thinks she last took around the 7th as it's usually delivered to her on the . She states she takes a medication as needed for swelling but is unsure what it is.
--- OUTSIDE RECORDS SUMMARY | 2025-07-28 19:57 | XMS_ITS | Clinical Summary ---
Author Organization [address] [place] [address] Address [address] [place] [address] Phone Care Team Providers Care Staff Radiographer Name Role Phone Leanne Valadez MD Primary Care Provider [phone] Allergies No known active allergies Medications amLODIPine (NORVASC) 10 mg tablet Take 1 Tablet by mouth daily. 3 Active ammonium lactate (LAC-HYDRIN) 12 % lotion Apply to soles of feet daily. At night wear socks to bed 4 Active aspirin 81 mg chewable tablet ONE MASTIQUE MICHELLE TABLETA POR VIA ORAL TODOS LOS KELLER 3 Active atorvastatin (LIPITOR) 40 mg tablet Take 1 Tablet by mouth daily. 3 Active cyclobenzaprin e (FLEXERIL) 10 mg tablet TAKE 1 TABLET BY MOUTH THREE TIMES A DAY NEEDED FOR MUSCLE SPASM 3 Active fluticasone HFA (Flovent HFA) 110 mcg/actuation inhaler INHALE 2 PUFFS BY MOUTH TWICE A DAY 3 Active gabapentin (NEURONTIN) 300 mg capsule TAKE 1 CAPSULE BY MOUTH THREE TIMES A DAY 3 Active blood sugar diagnostic (FreeStyle Lite Strips) test strip CHECK SUGARS 3 TIMES A DAY 4 Active adalimumab (Humira) 40 mg/0.8 mL syringe 4 Active insulin lispro 100 unit/mL injection INJECT 40 UNITS INTRAMUSCLAR THREE TIME DAILY 4 Active empagliflozin (Jardiance) 25 mg tablet TAKE 1 TABLET BY MOUTH EVERY MORNING 3 Active insulin glargine (Lantus U-100 Insulin) 100 unit/mL injection INJECT 80 UNITS SUBCUTANOUSLY ONCE DAILY AT BEDTIME 3 Active meloxicam (MOBIC) 15 mg tablet TAKE 1 TABLET BY MOUTH EVERY DAY NEEDED FOR PAIN 3 Active metFORMIN (GLUCOPHAGE) 1,000 mg tablet Take 1 Tablet by mouth 2 Times Daily. 3 Active methotrexate 2.5 mg tablet TAKE 6 TABLETS ORALLY EVERY WEEK 3 Active naproxen (NAPROSYN) 500 mg tablet TAKE 1 TABLET BY MOUTH TWICE A DAY NEEDED FOR PAIN 3 Active omeprazole (PriLOSEC) [address] capsule Take 1 Capsule by mouth daily. 3 Active dulaglutide (Trulicity) 3 mg/0.5 mL pen injector injection USE 1 INJECTION WEEKLY 4 Active albuterol HFA (Ventolin HFA) 90 mcg/actuation inhaler INHALE 2 PUFFS BY MOUTH 4 TIMES A DAY NEEDED 3 Active ammonium lactate (AmLactin) 12 % lotion Apply topically if needed for dry skin. 400 g 2 5 08/26/19 26 Active ammonium lactate (AmLactin) 12 % lotion Apply topically if needed for dry skin. 400 g 2 5 03/26/20 26 Active Active Problems Problem Noted Date Diagnosed Date Asthma 07/05/2024 Depression 07/05/2024 DM (diabetes mellitus) 07/05/2024 Elevated LFTs 07/05/2024 Epilepsy 07/05/2024 HTN (hypertension) 07/05/2024 Hyperlipidemia 07/05/2024 Psoriatic arthritis 07/05/2024 Encounters Date Type Department Care Team Description 06/26/2025 1:00 PM EST Office Visit Orthopedic Surgery - [address] [address] Yury Carrillo DPM Controlled type 2 diabetes with neuropathy (CMS/HCC V24, CMS/HCC V28) (Primary Dx); Pain in toes of both feet; Arthritis of both feet; Hammertoes of both feet; Dermatophytosis, nail from Last 3 Months Surgical History Surgery Date Site/Laterality Comments TUBAL LIGATION PROCEDURE: HISTORICAL TUBAL LIGATION Medical History Medical History Date Comments Psoriatic arthritis (CMS/HCC V24, CMS/[facility] V28) DX:Psoriatic arthritis (HCC) HTN (hypertension) DX:HTN (hyper tension) Asthma DX:Asthma Elevated LFTs DX:Elevated LFTs Epilepsy ([facility] V24, [facility] V28) DX:Epilepsy (HCC) Depression DX:Depression DM (diabetes mellitus) ([facility]/ [facility] V24, [facility] V28) DX:DM (diabetes mellitus) (H CC) Hyperlipidemia DX:Hyperlipidemi a Morbid obesity ([facility] V24, [facility] V28) DX:Morbid obesity (HCC) Family History Medical History Relation Name Comments Coronary artery disease Father htn, DM Other: alcoholism Mother liver dz Other: dm Sister glaucoma Relation Name Status Comments Father Mother Sister Social History Tobacco Use Types Packs/Day Years Used Date Smoking Tobacco: Never Smokeless Tobacco: Never Comments Unknown Sex and Gender Information Value Date Recorded Sex Assigned at Not on file Legal Sex Female 5:42 PM EST Gender Identity Not on file Sexual Orientation Not on file Last Filed Vital Signs Vital Sign Reading Time Taken Comments Blood Pressure - - Pulse - - Temperature - - Respiratory Rate - - Oxygen Saturation - - Inhaled Oxygen Concentration - - Weight 112 kg (248 lb) 12/24/2024 1:48 PM EDT Height 157.5 cm (5' 2.01 ) 12/24/2024 1:48 PM ED T Body Mass Index 45.35 12/24/2024 1:48 PM EDT Plan of Treatment Upcoming Encounters Date Type Department Care Team (Late st Contact Info) Description 09/29/2025 1:00 PM EST Office Visit Orthopedic Surgery - [place] [address] [phone] Yury Carrillo DPM [address] [address] Health Maintenance Due Date Last Done Comments Breast Cancer Screening 1965 Colorectal Cancer Screening: Colonoscopy 1963 Diabetes: Annual GFR (Glomer ular Filtration Rate) 1963 COVID-19 Vaccine (#1) 1968 Diabetes: Annual Foot Exam 1973 Diabetes: Annual Retina Eye Exam 1973 DTaP,Tdap,and Td Vaccines (1 - Tdap) 1982 Pneumococcal Vaccine: 50+ Ye ars (1 of 2 - PCV) 1982 Cervical Cancer Screening: P ap Smear 1984 RSV Immunization Adult Patie nts (1 - Risk 50-74 years 1-dose series) 2013 Zoster Vaccines (1 of 2) 2013 Cholesterol Screening (Lipid Panel) 07/16/2022 HIV Screening 07/16/2022 Hepatitis C Screening 07/16/2022 Social Influencers of Health Screening 07/16/2022 Diabetes: Annual Urine Albumin-Creatinine Ratio (uACR) 07/30/2022 Diabetes: Blood Sugar Contro l Test (HGBA1C) 07/30/2022 Hypertension/CHF/CAD Annual BMP Blood Test 07/30/2022 Depression Screening 08/14/2024 Influenza Vaccine (#1) 2025 HIB Vaccines Aged Out No longer eligi ble based on patient's age to complete this topic HPV Vaccines Aged Out No longer eligi ble based on patient's age to complete this topic Hepatitis A Vaccines Aged Out No long er eligible based on patient's age to complete this topic Hepatitis B Vaccines Aged Out No long er eligible based on patient's age to complete this topic IPV Vaccines Aged Out No longer eligi ble based on patient's age to complete this topic MMR Vaccines Aged Out No longer eligi ble based on patient's age to complete this topic Meningococcal ACWY Vaccine Aged Out N o longer eligible based on patient's age to complete this topic Meningococcal B Vaccine Aged Out No l onger eligible based on patient's age to complete this topic RSV Immunization Patients Un cassi 20 months Aged Out No longer eligible b ased on patient's age to complete this topic Varicella Vaccines Aged Out No longer eligible based on patient's age to complete this topic Insurance MEDICAID - [place] Care Teams Staff Radiographer Relationship Specialty Start Date End Date Leanne Valadez MD [address] [facility] [address] [place], [place] PCP - General Internal Medicine 04/01/19
[2025-07-28 20:18] VITALS: BP 165/80; PULSE 80; RESP 20; TEMP 36.7; O2SAT 96
[2025-07-28 22:30] VITALS: BP 174/86; PULSE 88; RESP 19; O2SAT 97
[2025-07-29 02:45] VITALS: BP 184/87; PULSE 81; RESP 16; O2SAT 98
--- NOTE | 2025-07-29 05:04 | HO.NURTONUR ---
pt BIBA from home for sudden L sided chest pain, reproducible. ED work up negative ADMIT: chest pain observation. sinus on tele, pain 09/23. 20g IV LAC. A/O x4, calm and cooperative with care. PHARM TECH for ADLs, ambulates with cane at baseline, 1 assist to bathroom. greenlandic speaking primarily. in hospital bed.
[2025-07-29 06:06] VITALS: BP 160/83; PULSE 84; RESP 17; TEMP 36.6; O2SAT 96
[2025-07-29 07:33] LABS: Glucose, Whole Blood 138 mg/dL (60-115)
[2025-07-29 08:47] VITALS: BMI 33.3
--- NOTE | 2025-07-29 10:47 | MHC.CM.PN ---
TY was addressed with Patient. Home/resume CLIENT SERVICE AND CONSULTING MANAGER(SON) is Patient's goal and CM has initiated and will follow for dc planning. PCP is Dr. Leanne Valadez and Son will transport to home.Patient uses a walker.
[2025-07-29 11:21] LABS: Glucose, Whole Blood 267 mg/dL (60-115)
[2025-07-29 11:56] VITALS: BP 168/84; PULSE 84; RESP 20; TEMP 36.4; O2SAT 97
[2025-07-29 13:57] LABS: Troponin-I High Sensitivity < 2.7 ng/L (<3.5-17.0)
--- NOTE | 2025-07-29 14:07 | PM.DS ---
DS: Providers Provider Date of admission: 07/28/25 16:48 Date of discharge: 07/29/25 Primary care physician: Leanne Valadez MD DS: Diagnosis Discharge Diagnosis (1) Chest pain: Status: Acute (2) Diabetes mellitus: Status: Acute (3) Diabetes 1.5, managed as type 2: Status: Acute DS: Summary Status at Discharge Cognitive/behavioral status at discharge: admission hpi Chief Complaint: Chest pain 60-year-old female with a history of hypertension hyperlipidemia and diabetes presents to ER today for sudden onset of left-sided chest pain. She states she was fine yesterday but awoke with this pain after sleep. She does note that she took a clonazepam last night to help her sleep and awoke this morning with this pain. The pain does not radiate down her arm and is not reproducible with head movements. She is exquisitely tender to palpation hospital course: Patient presented with atypical chest pain and was observed overnight with serial troponin I level, ACS was ruled and had no further pain by the next dsays, she was reassured and discharged home. Discharge diagnosis: chest pain Time Attestation Discharge Coordination Time (in mins): 35 Quality: Safe Use of Opioids Does Pt have an Active Cancer Diagnosis on the Problem List?: No Quality: Stroke Does the patient have a stroke diagnosis?: No Physical Exam Vital Signs: Vital Signs: Last Vital Signs Temp 98.1 F 07/29/25 15:20 Pulse 87 07/29/25 15:20 Resp 16 07/29/25 15:20 BP 144/62 H 07/29/25 15:20 Pulse Ox 95 07/29/25 15:20 O2 Del Method Room Air 07/29/25 15:20 BMI result Body Mass Index 33.3 Discharge Plan Discharge Anticipated Discharge Date/Time: 07/29/25 12:48 Patient Disposition: Home, Self-Care Discharge Diagnosis: Chest pain Referrals: Leanne Valadez MD [Primary Care Provider, Internal Medicine] - 1 Week Discharge Medications: Continued cyclobenzaprine 10 mg tablet 10 mg PO TID PRN (Reason: for muscle spasm) Qty: 270 1RF folic acid 1 mg tablet 1 mg PO DAILY Qty: 90 1RF Taltz Autoinjector 80 mg/mL auto-injector 80 mg subcut Q4W Qty: 1 5RF aspirin 81 mg tablet,chewable 1 tab PO DAILY clonazepam 1 mg Tablet 1 mg PO TID PRN (Reason: Anxiety) zolpidem 5 mg Tablet 5 mg PO BEDTIME PRN (Reason: Insomnia) methotrexate sodium 2.5 mg tablet 15 mg PO FR Otezla 30 mg tablet 30 mg PO BID Qvar RediHaler 80 mcg/actuation HFA aerosol breath activated 1 inh inhalation BID albuterol sulfate [ProAir HFA] 90 mcg/actuation HFA aerosol inhaler 2 puff inhalation Q6H PRN (Reason: Wheezing) omeprazole 20 mg capsule,delayed release(DR/EC) 20 mg PO DAILY metformin 1,000 mg tablet 1,000 mg PO BID amlodipine 10 mg tablet 10 mg PO DAILY Jardiance 25 mg tablet 25 mg PO QAM insulin glargine [Lantus U-100 Insulin] 100 unit/mL solution 70 unit subcut QPM naproxen 500 mg tablet 500 mg PO BID PRN (Reason: pain) (DME) FreeStyle Lite Strips Strip See Rx Instructions .ROUTE TID Qty: 10 Rx Instructions: As directed ergocalciferol (vitamin D2) 1,250 mcg (50,000 unit) capsule 1,250 mcg PO WE (DME) lancets [FreeStyle Lancets] 28 gauge misc See Rx Instructions .ROUTE BID Qty: 100 Rx Instructions: As directed insulin lispro 100 unit/mL insulin pen 20 unit subcut TID (DME) pen needle, diabetic [BD Kandice 2nd Gen Pen Needle] 32 gauge x 5/32 needle See Rx Instructions .ROUTE QID Qty: 1200 Rx Instructions: As directed Trulicity 3 mg/0.5 mL pen injector 3 mg subcut MO atorvastatin 80 mg tablet 80 mg PO DAILY Discharge Orders: Discharge Order (Routine); Ordered 07/29/25 Ordered By: Bhupendra Qureshi Diet: Advance to usual diet Activity on Discharge: As tolerated Stand Alone Forms: Patient Portal Discharge page Print Language: Belarusian Care Plan Goals: Reasured from chest pain Health Concerns: chest pain Plan of Treatment: Your cardiac work was negative, follow up with primary care doctor and if you continue to have chest pain you will need more cardiac testing Assessment: see above Discharge Date/Time: 07/29/25 15:35
--- NOTE | 2025-07-29 15:13 | MHC.CM.PN ---
Patient has been medically cleared for dc to home today.
[2025-07-29 15:20] VITALS: BP 144/62; PULSE 87; RESP 16; TEMP 36.7; O2SAT 95
== END 2025-07-29 15:35 | disposition home or self-care (01) ==
LOC: HO.ED 16:38 → HO.EDOVER 16:55 → HO.IMC 07-29 07:10
PROVIDERS: Admitting Provider Student in an Organized Health Care Education/Training Program; Emergency Provider Student in an Organized Health Care Education/Training Program; PCP Internal Medicine; Visit Provider Internal Medicine
DX: R07.9 Chest pain, unspecified (principal); E11.9 Type 2 diabetes mellitus without complications; R20.0 Anesthesia of skin; I10 Essential (primary) hypertension; E78.5 Hyperlipidemia, unspecified; J45.909 Unspecified asthma, uncomplicated; Z79.4 Long term (current) use of insulin; Z79.85 Long-term (current) use of injectable non-insulin antidiabetic drugs; Z79.84 Long term (current) use of oral hypoglycemic drugs; Z79.899 Other long term (current) drug therapy; Z79.51 Long term (current) use of inhaled steroids
CPT/HCPCS: 36415; 71045; 80053; 82947; 84484; 85025; 93005; 96372; 99222; 99285; J1650

== ENCOUNTER → 2025-07-28 12:52 | Outpatient (BNV) | payer MEDICAID, SELFPAY | PROVIDERS: Emergency Provider Student in an Organized Health Care Education/Training Program; PCP Internal Medicine; Visit Provider Internal Medicine Cardiovascular Disease | DX: R94.31 Abnormal electrocardiogram [ECG] [EKG] (principal); R07.9 Chest pain, unspecified | CPT/HCPCS: 93010 ==

== ENCOUNTER → 2025-07-28 13:13 | Outpatient (BNV) | payer MEDICAID, SELFPAY | PROVIDERS: Emergency Provider Student in an Organized Health Care Education/Training Program; PCP Internal Medicine; Visit Provider Radiology Diagnostic Radiology | DX: R07.9 Chest pain, unspecified (principal) | CPT/HCPCS: 71045 ==

== ENCOUNTER → 2025-07-28 16:48 | Outpatient (BNV) | payer MEDICAID, SELFPAY | PROVIDERS: Admitting Provider Student in an Organized Health Care Education/Training Program; Emergency Provider Student in an Organized Health Care Education/Training Program; PCP Internal Medicine; Visit Provider Hospitalist | DX: R07.9 Chest pain, unspecified (principal); E11.9 Type 2 diabetes mellitus without complications; Z79.4 Long term (current) use of insulin | CPT/HCPCS: 99222; 99239 ==